=== PATIENT | female | born 1975 | race Caucasian/White ===

== ENCOUNTER 2021-10-13 17:00 | Inpatient (IN) ==
[2021-10-13] MEDS ORDERED: ONDANSETRON INJ 2 MG/ML 2 ML VIAL IV STA (19:22)
[2021-10-13] MEDS ORDERED: SODIUM CHLORIDE 0.9% 500 ML IV STA (19:22)
[2021-10-13] MEDS ORDERED: MoRPHine SULFATE 4 MG/ML 1 ML CARP\\VIAL IV STA ×2 (19:22→21:00)
--- NOTE | 2021-10-13 19:25 | Emergency Department Note ---
Impression & Plan Lumbar radiculopathy, Bulging lumbar disc ADMIT ED Provider Note HPI: The patient is a 46-year-old female who presents emergency department with a chief complaint of left-sided back pain with radicular symptoms down the left leg that has been worsening over the past 2 weeks. Patient states that she has had outpatient x-rays performed, she has been on multiple Medications over the past 2 weeks without any relief of her pain. Patient states that tonight her pain was more intractable than it had been, worsens with movement of her left leg, she states the pain is in the left lower back and radiates down to her left foot. Patient denies any urinary incontinence or retention, denies any recent fevers, denies any motor deficits distally in the lower extremities. On arrival the patient is tearful, she is anxious appearing, states that she is having fairly severe lower back pain. ROS: -Neuro: Left-sided lower back pain with radicular symptoms *10 point review systems was conducted and is otherwise negative unless stated above *Outpatient medications and allergy history reviewed PE: General: Alert, very distressed secondary to pain HEENT: Normocephalic, atraumatic Eyes: Extraocular eye movement is intact, no scleral erythema Pulmonary: Clear to auscultation bilaterally, no wheezing Cardio: Regular rate and rhythm GI: Abdomen is soft, nontender : No suprapubic tenderness MSK: No evidence of trauma or malformation of the extremities, no edema Skin: No evidence of rash Neuro: Alert, no focal deficits, no midline tenderness of the thoracic or lumbar spine to palpation, no step-off deformity, no fluctuance patient ambulates lower extremities spontaneously without issue, motor/sensory function intact Psychiatric: Appearing/tearful Medical Decision Making: Patient presented to the emergency department with some acute back pain that is been worsening over the past 2 weeks. Given that she has had multiple outpatient x-rays performed I did obtain CT imaging of the lumbar spine that shows evidence of paracentral disc protrusion at the level of L3/L4 with some impingement of the lateral nerve roots on the left side also resulting in some severe central canal narrowing. Patient was given morphine here in the ED for pain with some minimal relief, she was given an additional dose of morphine as well as a dose of Solu-Medrol on my reassessment given that she is having some continued pain. She remains otherwise neurologically intact in the distal extremities on my reassessment. Given the severity of the patient's pain in add ition to the intractable nature, I did discuss case with on-call spinal surgery, Dr. Hernandez, who states that he would be able to evaluate the patient tomorrow for surgery given the severity of her pain. Patient states that she prefers admission at this time, I do think this is reasonable given CT imaging findings. Following my discussion with Dr. Hernandez we will obtain MRI imaging of the lumbar spine to assist in planning for possible surgical intervention tomorrow for likely decompression. Patient was in agreement to the above plan, I discussed the case with the on-call hospitalist for [facility], Dr. Van, the patient was admitted in stable condition for further management with MRI pending. Diagnosis: 1. Acute left-sided lower back pain with radicular symptoms 2. Intractable lower back pain 3. Lumbar disc disease with central canal narrowing on CT imaging Disposition: Admission Bryce Cartwright DO Emergency Medicine Past Med/Surg History Medical History Erosive gastropathy GERD without esophagitis Irritable bowel syndrome with diarrhea Tobacco use Surgical History (Updated 10/13/21 @ 21:59 by Mariela Van DO) H/O colonoscopy History of esophagogastroduodenoscopy (EGD) Social History Smoking Status: Current some day smoker Preferred Language: [place] Feels Safe at Home: Yes Allergies Allergies Allergy/AdvReac Type Severity Reaction Status Date / Time No Known Allergies Allergy Verified 10/13/21 19:47 Home Meds Home Medications Medication Instructions Recorded Confirmed oxycodone-acetaminophen 5 mg-325 1 tab PO Q4H PRN 10/13/21 10/13/21 mg tablet Results & Data (ED) Vital Signs Vital Signs - 24 hr 10/13/21 17:11 10/13/21 20:17 10/13/21 21:15 Temperature 36.6 C Temperature Source Temporal Artery Scan Pulse Rate 111 H Pulse Rate [Finger] 76 73 Pulse Rhythm Regular Respiratory Rate 18 20 18 Respiratory Effort / Characteristics Non-Labored Non-Labored Respiratory Depth Normal Normal Respiratory Pattern Regular Blood Pressure 148/91 H Blood Pressure [Right Arm] 106/76 124/80 Blood Pressure Mean 110 Blood Pressure Mean [Right Arm] 86 94 Blood Pressure Position [Right Arm] Lying Pulse Oximetry 98 100 95 Oxygen Delivery Method Room Air Room Air Room Air Sepsis Recent Fever Within 48 Hours No Sepsis New/Unexplained Change in Mental Status N/A Sepsis Action Taken by Nursing No Action Required 10/13/21 21:20 Temperature Temperature Source Pulse Rate Pulse Rate [Finger] Pulse Rhythm Respiratory Rate Respiratory Effort / Characteristics Respiratory Depth Respiratory Pattern Blood Pressure Blood Pressure [Right Arm] Blood Pressure Mean Blood Pressure Mean [Right Arm] Blood Pressure Position [Right Arm] Pulse Oximetry 95 Oxygen Delivery Method Room Air Sepsis Recent Fever Within 48 Hours Sepsis New/Unexplained Change in Mental Status Sepsis Action Taken by Nursing Laboratory Data Result diagrams: 10/13/21 19:40 10/13/21 19:40 Lab Results 10/13/21 10/13/21 10/13/21 Range/Units 19:40 19:40 19:40 WBC 13.14 H (4.8-10.8) K/uL RBC 5.13 (4.2-5.4) M/uL Hgb 14.2 (12.0-16.0) g/dL Hct 43.0 (37-47) % MCV 83.8 (80-100) fL MCH 27.7 (25-34) pg MCHC 33.0 (32-36) g/dL RDW Std Deviation 44.7 (36.4-46.3) fL RDW Coeff of Ramesh 14.4 (11.5-14.5) % Plt Count 356 (130-400) K/uL MPV 9.8 (7.4-10.4) fL Immature Gran % (Auto) 0.5 % Neut % (Auto) 64.7 % Lymph % (Auto) 27.5 % [place] % (Auto) 6.8 % Eos % (Auto) 0.4 % Baso % (Auto) 0.1 % Neut # (Auto) 8.51 H (1.4-6.5) K/uL Lymph # (Auto) 3.62 H (1.2-3.4) K/uL [place] # (Auto) 0.89 H (0.11-0.59) K/uL Eos # (Auto) 0.05 (0-0.5) K/uL Baso # (Auto) 0.01 (0-0.2) K/uL Immature Gran # (Auto) 0.06 H (0.00-0.02) K/uL Sodium 135 L (136-145) mmol/L Potassium 4.0 (3.5-5.1) mmol/L Chloride 101 (98-107) mmol/L Carbon Dioxide 22 (21-32) mmol/L Anion Gap 12 H (3-11) BUN 15 (6-23) mg/dl Creatinine 0.69 (0.6-1.2) mg/dl Est Cr Clr Drug Dosing Not Reportable Est GFR ( Amer) 121.8 ml/min Est GFR (Non-Af Amer) 105.1 ml/min BUN/Creatinine Ratio 21.7 H (10-20) Glucose 94 (70-99(Fasting)) mg/dl Calcium 9.5 (8.5-10.1) mg/dl Total Bilirubin 0.6 (0.2-1.0) mg/dl AST 23 (13-39) U/L ALT 24 (7-52) U/L Alkaline Phosphatase 68 (34-104) U/L Total Protein 7.9 (6.0-8.3) gm/dl Albumin 4.8 (3.4-5.0) gm/dl Globulin 3.1 (2.5-4.0) gm/dl Albumin/Globulin Ratio 1.5 (0.9-2) Lipase 12 (11-82) U/L Urine Color Yellow Urine Appearance Clear (Clear) Urine pH 6.0 (4.5-7.5) Ur Specific [place] 1.010 (1.000-1.030) Urine Protein Negative (Negative) Urine Glucose (UA) Negative (Negative) Urine Ketones Negative (Negative) Urine Blood Negative (Negative) Urine Nitrite Negative (Negative) Urine Bilirubin Negative (Negative) Urine Urobilinogen Negative (Negative) Ur Leukocyte Esterase Negative (Negative) SARS-CoV-2, RNA, NAAT (NEGATIVE) 10/13/21 Range/Units 21:15 WBC (4.8-10.8) K/uL RBC (4.2-5.4) M/uL Hgb (12.0-16.0) g/dL Hct (37-47) % MCV (80-100) fL MCH (25-34) pg MCHC (32-36) g/dL RDW Std Deviation (36.4-46.3) fL RDW Coeff of Ramesh (11.5-14.5) % Plt Count (130-400) K/uL MPV (7.4-10.4) fL Immature Gran % (Auto) % Neut % (Auto) % Lymph % (Auto) % [place] % (Auto) % Eos % (Auto) % Baso % (Auto) % Neut # (Auto) (1.4-6.5) K/uL Lymph # (Auto) (1.2-3.4) K/uL [place] # (Auto) (0.11-0.59) K/uL Eos # (Auto) (0-0.5) K/uL Baso # (Auto) (0-0.2) K/uL Immature Gran # (Auto) (0.00-0.02) K/uL Sodium (136-145) mmol/L Potassium (3.5-5.1) mmol/L Chloride (98-107) mmol/L Carbon Dioxide (21-32) mmol/L Anion Gap (3-11) BUN (6-23) mg/dl Creatinine (0.6-1.2) mg/dl Est Cr Clr Drug Dosing Est GFR ( Amer) ml/min Est GFR (Non-Af Amer) ml/min BUN/Creatinine Ratio (10-20) Glucose (70-99(Fasting)) mg/dl Calcium (8.5-10.1) mg/dl Total Bilirubin (0.2-1.0) mg/dl AST (13-39) U/L ALT (7-52) U/L Alkaline Phosphatase (34-104) U/L Total Protein (6.0-8.3) gm/dl Albumin (3.4-5.0) gm/dl Globulin (2.5-4.0) gm/dl Albumin/Globulin Ratio (0.9-2) Lipase (11-82) U/L Urine Color Urine Appearance (Clear) Urine pH (4.5-7.5) Ur Specific [place] (1.000-1.030) Urine Protein (Negative) Urine Glucose (UA) (Negative) Urine Ketones (Negative) Urine Blood (Negative) Urine Nitrite (Negative) Urine Bilirubin (Negative) Urine Urobilinogen (Negative) Ur Leukocyte Esterase (Negative) SARS-CoV-2, RNA, NAAT NEGATIVE (NEGATIVE) Administered Medications Discontinued Medications Hydromorphone HCl (Hydromorphone Inj 0.5 Mg/0.5 Ml Syr) 0.5 mg IV NOW STA Stop: 10/13/21 22:10 Last Admin: 10/13/21 22:16 Dose: 0.5 mg Documented by: [id number] Sodium Chloride (Nss) 500 mls @ 999 mls/hr IV .Q31M STA Stop: 10/13/21 19:52 Last Infusion: 10/13/21 20:14 Dose: 0 mls/hr Documented by: [id number] Admin: 10/13/21 19:37 Dose: 999 mls/hr Documented by: [id number] Methylprednisolone (Methylprednisolone 125 Mg/2 Ml Vial) 125 mg IV NOW STA Stop: 10/13/21 21:01 Last Admin: 10/13/21 21:08 Dose: 125 mg Documented by: [id number] Morphine Sulfate (Morphine Sulfate 4 Mg/Ml 1 Ml Carp\Vial) 4 mg IV NOW STA Stop: 10/13/21 19:23 Last Admin: 10/13/21 19:37 Dose: 4 mg Documented by: [id number] Morphine Sulfate (Morphine Sulfate 4 Mg/Ml 1 Ml Carp\Vial) 4 mg IV NOW STA Stop: 10/13/21 21:01 Last Admin: 10/13/21 21:08 Dose: 4 mg Documented by: [id number] Ondansetron HCl (Ondansetron Inj 2 Mg/Ml 2 Ml Vial) 4 mg IV NOW STA Stop: 10/13/21 19:23 Last Admin: 10/13/21 19:37 Dose: 4 mg Documented by: [id number] Imaging Data Radiologist's Impression: Lumbar Spine CT 10/13/21 19:[address] DOSE: 257.71 mGy.cm HISTORY: back pain with L sided radicular pain TECHNIQUE: Multiaxial CT images of the lumbar spine were performed and reformatted in the sagittal and coronal plane without the use of contrast. A dose lowering technique was utilized adhering to the principles of ALARA. COMPARISON: None. FINDINGS: Mild levoscoliosis of the lumbar spine. No acute fracture or subluxation. Small Schmorl's node at the superior endplate of L2. There is moderate disc space narrowing at L3-L4. Severe disc space narrowing at L4-5 and L5-S1 with endplate sclerosis and small marginal osteophytes. Mild facet degenerative changes noted within the lumbar spine. Visualized sacrum is intact. [id number] central canal and moderate to severe bilateral neural foraminal narrowing at L4-5 and L5-S1 due to the disc bulges and facet hypertrophy. Best seen on axial image 186 and sagittal image 56 there is an 11 x 10 mm left paracentral disc extrusion at L3-L4 resulting in moderate to severe central canal narrowing most pronounced on the left. This likely compresses the transiting left nerve roots at this level. No significant neural foraminal narrowing. IMPRESSION: 1. An 11 x 10 mm left paracentral disc extrusion at L3-L4 resulting in moderate to severe central canal narrowing most pronounced on the left. This likely compresses the transiting left nerve roots at this level. 2. Mild to moderate central canal and moderate to severe bilateral neural foraminal narrowing at L4-5 and L5-S1 due to the broad-based posterior disc bulges and facet hypertrophy. 3. No fracture or subluxation. ACT 112: Negative or not required by law. Electronically signed by: Artur Merino M.D. 10/13/2021 8:27 PM Discharge Plan Visit Data Chief Complaint: Back Injury/Pain Stated Complaint: LOWER BACK PAIN ED Provider: Bryce Cartwright Discharge Problem: Lumbar radiculopathy, Bulging lumbar disc Forms Stand Alone Forms: [place] Prescriptions Prescriptions: No Action oxycodone-acetaminophen 5-325 mg tablet 1 tab PO Q4H PRN (Reason: Pain) RF: 0 Referrals Referrals: PCP,NO [Physician] -
[2021-10-13 19:52] LABS: Basophils # (auto) 0.01 K/uL (0-0.2); Basophils % (auto) 0.1 %; Eosinophils # (auto) 0.05 K/uL (0-0.5); Eosinophils % (auto) 0.4 %; Hemoglobin 14.2 g/dL (12.0-16.0); Immature Granulocytes # (auto) 0.06 K/uL (0.00-0.02); Immature Granulocytes % (auto) 0.5 %; Lymphocytes # (auto) 3.62 K/uL (1.2-3.4); Lymphocytes % (auto) 27.5 %; Mean Corpuscular Hemoglobin 27.7 pg (25-34); Mean Corpuscular Volume 83.8 fL (80-100); Mean Platelet Volume 9.8 fL (7.4-10.4); Monocytes # (auto) 0.89 K/uL (0.11-0.59); Monocytes % (auto) 6.8 %; Neutrophils # (auto) 8.51 K/uL (1.4-6.5); Neutrophils % (auto) 64.7 %; Platelet Count 356 K/uL (130-400); RDW Coefficient of Variation 14.4 % (11.5-14.5); RDW Standard Deviation 44.7 fL (36.4-46.3); Red Blood Count 5.13 M/uL (4.2-5.4); White Blood Count 13.14 K/uL (4.8-10.8)
[2021-10-13 20:00] LABS: Appearance Urine Clear (Clear); Bilirubin Urine Negative (Negative); Blood Urine Negative (Negative); Color Urine Yellow; Glucose Urine UA Negative (Negative); Ketones Urine Negative (Negative); Leukocyte Esterase Urine Negative (Negative); Nitrite Urine Negative (Negative); Protein Urine Negative (Negative); Urobilinogen Urine Negative (Negative)
[2021-10-13 20:13] LABS: Alanine Aminotransferase 24 U/L (7-52); Albumin Globulin Ratio 1.5 (0.9-2); Albumin Level 4.8 gm/dl (3.4-5.0); Alkaline Phosphatase 68 U/L (34-104); Anion Gap 12 (3-11); Aspartate Aminotransferase 23 U/L (13-39); BUN Creatinine Ratio 21.7 (10-20); Bilirubin,Total 0.6 mg/dl (0.2-1.0); Blood Urea Nitrogen 15 mg/dl (6-23); Calcium 9.5 mg/dl (8.5-10.1); Carbon Dioxide 22 mmol/L (21-32); Chloride 101 mmol/L (98-107); Est GFR (African American) 121.8 ml/min; Est GFR (Non-African American) 105.1 ml/min; Globulin 3.1 gm/dl (2.5-4.0); Glucose 94 mg/dl (70-99(Fasting)); Lipase 12 U/L (11-82); Sodium 135 mmol/L (136-145); Total Protein 7.9 gm/dl (6.0-8.3)
--- NOTE | 2021-10-13 20:29 | CT Scan Report ---
LUMBAR SPINE CT CT DOSE: 257.71 mGy.cm HISTORY: back pain with L sided radicular pain TECHNIQUE: Multiaxial CT images of the lumbar spine were performed and reformatted in the sagittal an d coronal plane without the use of contrast. A dose lowering technique was utilized adhering to the principles of ALARA. COMPARISON: None. FINDINGS: Mild levoscoliosis of the lumbar spine. No acute fracture or subluxation. Small Schmorl's n ode at the superior endplate of L2. There is moderate disc space narrowing at L3-L4. Severe disc spac e narrowing at L4-5 and L5-S1 with endplate sclerosis and small marginal osteophytes. Mild facet dege nerative changes noted within the lumbar spine. Visualized sacrum is intact. [id number] central canal and moderate to severe bilateral neural foraminal narrowing at L4-5 and L5-S1 due to the disc bulges and facet hypertrophy. Best seen on axial image 186 and sagittal image 56 there is an 11 x 10 mm left paracentral disc extrusion at L3-L4 resulting in moderate to severe central canal narrowing m ost pronounced on the left. This likely compresses the transiting left nerve roots at this level. No significant neural foraminal narrowing. IMPRESSION: 1. An 11 x 10 mm left paracentral disc extrusion at L3-L4 resulting in moderate to severe central can al narrowing most pronounced on the left. This likely compresses the transiting left nerve roots at t his level. 2. Mild to moderate central canal and moderate to severe bilateral neural foraminal narrowing at L4-5 and L5-S1 due to the broad-based posterior disc bulges and facet hypertrophy. 3. No fracture or subluxation. ACT 112: Negative or not required by law. Electronically signed by: Artur Merino M.D. 10/13/2021 8:27 PM
[2021-10-13] MEDS ORDERED: methylPREDNISolone 125 MG/2 ML VIAL IV STA (21:00)
--- NOTE | 2021-10-13 22:00 | History & Physical Report ---
Date of Service October 13, 2021 Assessment & Plan (1) Lumbar disc herniation with radiculopathy: Plan: MRI confirms L3-4 disc herniation. Patient with severe pain, numbness in left leg and some subjective weakness in left leg. Having difficulty walking and has failed multiple outpatient treatments. Ortho spine consulted. NPO p MN for possible operation in am. Anti emetics and pain medications as needed. (2) Tobacco use: Plan: Vaping consistently. Declined nicotine patch. (3) DVT prophylaxis: Plan: SCDs Full Code Dispo-pending ortho spine recommendations. Mariela Van DO [facility] Hospitalist History of Present Illness Chief Complaint: back pain Primary Care Provider: Syed Abdi MD 46 yo F smoker (vaper) presents with acute on chronic back pain. She reports a history of lower back pain on occasion and states that she would se two aspirin with resolution. She now reports that two ago she started feeling a sharp radiating pain from the left lower back down the left posterior leg. Pain is severe and causes her difficulty moving around and walking. She reports that next day she was unable to stand. The pain radiated all the way to her left toes. She reports muscle tremors and numbness. She received muscle relaxers and prednisone, but didn't improve over the weekend. She received SI joint injections in the clinic, also without success in controlling his pain. Her severe pain brought her in and she has received IV narcotics and solumedrol IV. Dr Hernandez has opening tomorrow for possible surgery but needs MRI tonight, which was ordered. This reveals a large left sided disc herniation in the L3-4 area with severe left lateral recess and moderate to severe spinal canal stenosis. She reports nausea currently, possibly related to recent IV narcotic use, and am giving her phenergan now. She reports nausea as a response to anesthesia in the past, but otherwise no issue of poor tolerance of anesthesia. She denies a h/o blood clots personally or in her family. She is an active person without any issues with chest pain or shortness of breath with exertion in the last 6 months. Allergies Allergy/AdvReac Type Severity Reaction Status Date / Time No Known Allergies Allergy Verified 10/13/21 19:47 Home Medications Medication Instructions Recorded Confirmed Type oxycodone-acetaminophen 5 mg-325 1 tab PO Q4H PRN 10/13/21 10/13/21 History mg tablet Past Med/Surg History Medical History Erosive gastropathy GERD without esophagitis Irritable bowel syndrome with diarrhea Tobacco use Surgical History H/O colonoscopy History of esophagogastroduodenoscopy (EGD) Family History Other Family history non-contributory Social History Smoking Status: Current every day smoker Cigarettes Per Day: vape; Hx Alcohol Use: Yes Alcohol type: hard liquor Hx Substance Use: No Preferred Language: Tristanian Communication Ability: Effective 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 Physical Exam Physical Exam: CONSTITUTIONAL: WNWD, vitals as above, generally appears in moderate distress with position changes. EYES: normal conjunctivae, no scleral icterus ENT: external ear and nose normal, MMM NECK: trachea midline RESPIRATORY: clear to auscultation bilaterally, no crackles, rales or wheezes, normal respiratory effort CARDIOVASCULAR: regular rate and rhythm, S1 and 2 heard without murmurs, gallops or rubs, no JVD, no peripheral edema CHEST: inspection of chest was normal GASTROINTESTINAL: soft, nontender, ND, no guarding MUSCULOSKELETAL: strength 5/5 throughout, head is normocephalic and atraumatic, SI joint pain to palpation on the left side. No piriformis pain on the left. SKIN: warm and dry, NEUROLOGIC: CN 2-12 grossly intact, no sensory deficit, normal cognition, normal speech, no tremor, 2+ DTRs bilaterally. PSYCHIATRIC: alert cooperative and oriented to person, place and time. Results & Data Results & Data ([facility]) Vital Signs (Past 12 Hours) Vital Signs Temp Pulse Pulse Resp BP BP Pulse Ox 10/13/21 21:20 95 10/13/21 21:15 73 18 124/80 95 10/13/21 20:17 76 20 106/76 100 10/13/21 17:11 36.6 C 111 H 18 148/91 H 98 Laboratory Results Short CBC 10/13/21 Range/Units 19:40 WBC 13.14 H (4.8-10.8) K/uL Hgb 14.2 (12.0-16.0) g/dL Hct 43.0 (37-47) % Plt Count 356 (130-400) K/uL BMP 10/13/21 19:40 Sodium 135 L Potassium 4.0 Chloride 101 Carbon Dioxide 22 BUN 15 Creatinine 0.69 Glucose 94 Calcium 9.5 Liver Function 10/13/21 Range/Units 19:40 Total Bilirubin 0.6 (0.2-1.0) mg/dl AST 23 (13-39) U/L ALT 24 (7-52) U/L Alkaline Phosphatase 68 (34-104) U/L Albumin 4.8 (3.4-5.0) gm/dl Urine 10/13/21 Range/Units 19:40 Urine Color Yellow Urine Appearance Clear (Clear) Urine pH 6.0 (4.5-7.5) Ur Specific [place] 1.010 (1.000-1.030) Urine Protein Negative (Negative) Urine Glucose (UA) Negative (Negative) Diagnostic Findings Lumbar Spine CT 10/13/21 19:[address] DOSE: 257.71 mGy.cm HISTORY: back pain with L sided radicular pain TECHNIQUE: Multiaxial CT images of the lumbar spine were performed and reformatted in the sagittal and coronal plane without the use of contrast. A dose lowering technique was utilized adhering to the principles of ALARA. COMPARISON: None. FINDINGS: Mild levoscoliosis of the lumbar spine. No acute fracture or subluxation. Small Schmorl's node at the superior endplate of L2. There is moderate disc space narrowing at L3-L4. Severe disc space narrowing at L4-5 and L5-S1 with endplate sclerosis and small marginal osteophytes. Mild facet degenerative changes noted within the lumbar spine. Visualized sacrum is intact. [id number] central canal and moderate to severe bilateral neural foraminal narrowing at L4-5 and L5-S1 due to the disc bulges and facet hypertrophy. Best seen on axial image 186 and sagittal image 56 there is an 11 x 10 mm left para central disc extrusion at L3-L4 resulting in moderate to severe central canal narrowing most pronounced on the left. This likely compresses the transiting left nerve roots at this level. No significant neural foraminal narrowing. IMPRESSION: 1. An 11 x 10 mm left paracentral disc extrusion at L3-L4 resulting in moderate to severe central canal narrowing most pronounced on the left. This likely compresses the transiting left nerve roots at this level. 2. Mild to moderate central canal and moderate to severe bilateral neural foraminal narrowing at L4-5 and L5-S1 due to the broad-based posterior disc bulges and facet hypertrophy. 3. No fracture or subluxation. ACT 112: Negative or not required by law. Electronically signed by: Artur Merino M.D. 10/13/2021 8:27 PM Code Status & VTE Plan VTE Prophylaxis Plan VTE Prophylaxis will be ordered: Yes
[2021-10-13] MEDS ORDERED: HYDROmorphone INJ 0.5 MG/0.5 ML SYR IV STA (22:09)
[2021-10-13] MEDS ORDERED: oxyCODONE/ACETAMINOPHEN 5mg/325mg TAB PO PRN (23:03)
[2021-10-13] MEDS ORDERED: POLYETHYLENE (MIRALAX) 17 GM PACK PO PRN (23:03)
[2021-10-13] MEDS ORDERED: ACETAMINOPHEN 325 MG TAB PO PRN (23:03)
[2021-10-13] MEDS ORDERED: ONDANSETRON INJ 2 MG/ML 2 ML VIAL IV PRN (23:03)
[2021-10-13] MEDS: MoRPHine SULFATE 2 MG/ML CARP IV PRN (23:42)
[2021-10-14] MEDS ORDERED: PROMETHAZINE HCL 12.5 MG in SODIUM CHLORIDE 0.9% 50 ML IV STA (01:29)
[2021-10-14] MEDS ORDERED: PROMETHAZINE HCL 12.5 MG in SODIUM CHLORIDE 0.9% 50 ML IV PRN ×3 (01:29→16:59)
[2021-10-14 06:52] LABS: Pregnancy Test, Urine Negative (Negative)
--- NOTE | 2021-10-14 07:53 | Orthopedic Consultation ---
Date of Consultation October 14, 2021 Assessment & Plan (1) Lumbar disc herniation with radiculopathy: Assessment radicular process L3-L4 in the left with radiculopathy. Plan at this time the patient is in significant distress is unable to ambulate or work for the past 2 weeks as failed a course of steroids and would like to consider surgical intervention. She will require lumbar laminotomy excision with herniated free fragment L3-4 on the left. Risk benefits pros cons and alternatives were outlined in detail. This time she is n.p.o. we will try for surgery later today. History of Present Illness Reason for Consultation: Severe left leg pain Attending Physician: Adriana Barrow MD History of Present Illness This is a 46-year-old female who presents to emergency room last evening with complaints of severe left leg pain. She states the symptoms began a little over 2 weeks ago. She denies any specific trauma fall or event. She is seen her family physician twice over the past 2 weeks and has undergone a course of steroids. This provided very temporary relief. She describes the pain as involving the back left buttock and left anterior thigh extending below the knee into the foot. There is numbness and tingling in the foot. She is unable to ambulate secondary to the pain. She has to lie supine with her leg propped up. She has been unable to work for the past week secondary to pain. The right lower extremity is asymptomatic. She denies loss of bowel or bladder control. Allergies Allergy/AdvReac Type Severity Reaction Status Date / Time No Known Allergies Allergy Verified 10/13/21 19:47 Home Medications Medication Instructions Recorded Confirmed Type oxycodone-acetaminophen 5 mg-325 1 tab PO Q4H PRN 10/13/21 10/13/21 History mg tablet Patient History Medical History Erosive gastropathy GERD without esophagitis Irritable bowel syndrome with diarrhea Tobacco use Surgical History H/O colonoscopy History of esophagogastroduodenoscopy (EGD) Family History Other Family history non-contributory Social History Smoking Status: Current every day smoker Cigarettes Per Day: vape; Hx Alcohol Use: Yes Alcohol type: hard liquor Hx Substance Use: No Preferred Language: Martiniquais Communication Ability: Effective Archeologist Required: No Beliefs That Will Affect Care: None Current Living Situation: Spouse Other Information That Helps Us Care for You: No Feels Safe at Home: Yes Safety Concerns: Feels Safe At This Time Assistive Devices: Contacts Physical Exam Physical Exam: On exam she is most comfortable lying supine with her left leg propped up under a pillow. She exhibits plus out of 5 bilateral plantar flexion dorsiflexion bilaterally. There is some breakaway weakness to the left quadriceps compared to 5 or 5 on the right. Sensory is diminished on left compared to the right. She can has significant tension signs on the left. Results & Data ([facility]) Vital Signs (Past 12 Hours) Vital Signs Temp Pulse Resp BP BP Pulse Ox 10/13/21 23:05 36.5 C 66 18 113/68 97 10/13/21 21:20 95 10/13/21 21:15 73 18 124/80 95 10/13/21 20:17 76 20 106/76 100
[2021-10-14] MEDS: MoRPHine SULFATE 2 MG/ML CARP IV PRN ×2 (07:54→12:44)
--- NOTE | 2021-10-14 08:10 | Magnetic Resonance Report ---
MRI OF THE LUMBAR SPINE WITHOUT CONTRAST CLINICAL HISTORY: Intractable back pain, radicular pain down left leg COMPARISON STUDY: Lumbar spine CT October 13, 2021. TECHNIQUE: Utilizing a 1.5 Bettina magnet and dedicated coil, multiplanar, multiecho imaging of the [facility] spine was performed without IV contrast. FINDINGS: For purposes of numbering on this exam, the L5-S1 disc space is assigned to axial image 23 of 25. Ali gnment of the lumbar spine is anatomic. Vertebral body heights are maintained. No suspicious marrow r eplacement is present. The conus terminates at the T12-L1 level. There is no intracanalicular mass or fluid collection. Discogenic changes at the L3-L4 level are noted. There is a Schmorl's node along t he superior endplate of L2 as well as the superior endplate of T12. Paravertebral soft tissues are un remarkable. This exam was slightly compromised given difficulty positioning. A 2.3 cm cystic focus wi thin the right hemipelvis is partially imaged on this exam. L1-2: The central canal and neural foramen are patent. L2-3: The central canal and neural foramen are patent. L3-4: There is mild disc space narrowing. Note is made of a 1.2 x 1.1 x 1 cm left paracentral disc ex trusion which results in marked narrowing of the left lateral recess with displacement of the descend ing left L4 nerve root. There is moderate to severe narrowing of the left aspect of the canal. Mild f acet arthrosis is present. Neural foramen are patent. L4-5: Moderate disc space narrowing is noted. There is facet arthrosis. Central canal is patent. Ther e is mild bilateral neural foraminal stenosis. L5-S1: Facet arthrosis is present. There is mild disc space narrowing. There is moderate bilateral ne ural foraminal stenosis. IMPRESSION: 1. Large left paracentral disc extrusion at L3-L4 which results in severe narrowing of the left later al recess and moderate to severe central canal stenosis. This could be correlated with left L4 radicu lopathy. 2. Otherwise, patent central canal. 3. Moderate multilevel facet arthrosis. Multilevel neural foraminal stenosis, as above. 4. 2.3 cm cystic focus within the right hemipelvis, partially imaged on this exam. This likely a righ t ovarian cyst. Pelvic ultrasound could be obtained for further evaluation. ACT 112: Negative or not required by law. Electronically signed by: Sanjeev Pope M.D. 10/14/2021 8:09 AM
--- NOTE | 2021-10-14 12:33 | Anesthesiology Consultation ---
Date of Service October 14, 2021 Assessment & Plan Chart Review Chart Review: Acceptable Risk for Surgery and Patient NOT seen in Pre Admission Testing Consults Requested none ASA ASA2 Proposed Anesthesia Anesthesia Type: General History Surgery Operation Date: 10/14/21 09:50 Proposed Procedures p Lumbar Laminectomy Left L3-L4(Left) - Evangelist Hernandez DO Height/Weight Height: 5 ft 5 in Weight: 54.601 kg Allergies Allergy/AdvReac Type Severity Reaction Status Date / Time No Known Allergies Allergy Verified 10/13/21 19:47 Medications Home Medications Medication Instructions Recorded Confirmed Last Taken oxycodone-acetaminophen 5 mg-325 1 tab PO Q4H PRN 10/13/21 10/13/21 10/12/21 mg tablet Active Medications Generic Name Dose Route Start Last Admin Trade Name Freq PRN Reason Stop Dose Admin Morphine Sulfate 2 mg 10/13/21 23:03 10/14/21 07:54 Morphine Sulfate 2 Mg/Ml Carp IV 10/27/21 23:02 2 mg Q4H PRN Administration Chest Pain Past Medical History Medical History Erosive gastropathy GERD without esophagitis Irritable bowel syndrome with diarrhea Tobacco use Exercise / Class Metabolic Activity II 4-5 Yardwork/Stairs/Walk up hill Past Family History Family History Other Family history non-contributory Past Surgical History Surgical History H/O colonoscopy History of esophagogastroduodenoscopy (EGD) Past Anesthesia History No Hx of Anesthesia Complications and No Family Hx of Anesthesia Complications History of PONV No Hx of PONV and No Hx of Motion Sickness Social History Smoking Status: Current every day smoker Smoking cigarettes per day: vape Hx Alcohol Use: Yes Alcohol type: hard liquor alcohol intake frequency: holidays/special occasions only Hx Substance Use: No Physical Exam Vital Signs Last Vital Signs Temp 36.7 C 10/14/21 07:27 Pulse 70 10/14/21 07:27 Resp 18 10/14/21 07:27 BP 101/64 10/14/21 07:27 Pulse Ox 93 10/14/21 07:27 Testing Laboratory Results 10/13/21 19:40 10/13/21 19:40 Urine Color Yellow 10/13/21 19:40 Urine Appearance Clear (Clear) 10/13/21 19:40 Urine pH 6.0 (4.5-7.5) 10/13/21 19:40 Ur Specific [place] 1.010 (1.000-1.030) 10/13/21 19:40 Urine Protein Negative (Negative) 10/13/21 19:40 Urine Glucose (UA) Negative (Negative) 10/13/21 19:40 Urine Ketones Negative (Negative) 10/13/21 19:40 Urine Nitrite Negative (Negative) 10/13/21 19:40 Ur Leukocyte Esterase Negative (Negative) 10/13/21 19:40 Urine Test Negative (Negative) 10/14/21 Unknown 10/14/21 Unknown Urine Test Negative Electrocardiogram Date: 10/13/21 Findings: + SB @ (at 60 w/ sinus arrhythmia;ventricular pre excitation,WPW pattern Type B pattern)
[2021-10-14] MEDS ORDERED: MIDAZOLAM HCL 1 MG/ML 2ML VIAL ONE (13:54)
[2021-10-14] MEDS ORDERED: fentaNYL citrate 100 MCG/2 ML VIAL ONE (13:55)
[2021-10-14] MEDS ORDERED: LIDOCAINE 2% 2 ML VIAL/AMP(20MG/ML) INFIL ONE (13:57)
[2021-10-14] MEDS ORDERED: NEOSTIGMINE METHYLSULFATE 1 MG/ML 10ML VIAL ONE (13:57)
[2021-10-14] MEDS ORDERED: ROCURONIUM BROMIDE 10 MG/ML 5 ML VIAL IV ONE (13:57)
[2021-10-14] MEDS ORDERED: GLYCOPYRROLATE 0.2 MG/ML VIAL ONE (13:57)
[2021-10-14] MEDS ORDERED: PROPOFOL IV EMULSION 10 MG/ML 20 ML VIAL IV ONE (13:57)
[2021-10-14] MEDS ORDERED: DEXAMETHASONE SOD INJ 4 MG/ML VIAL ONE (13:57)
[2021-10-14] MEDS ORDERED: ONDANSETRON INJ 2 MG/ML 2 ML VIAL ONE (13:57)
[2021-10-14] MEDS ORDERED: EPINEPHrine INJ 1 MG/ML AMP ONE (14:22)
[2021-10-14] MEDS ORDERED: ceFAZolin 1000MG 1,000 MG/7.5 ML SYR IV ONE (14:22)
[2021-10-14] MEDS ORDERED: SCOPOLAMINE 1 MG TDSY TD ONE ×2 (14:22→14:24)
[2021-10-14] MEDS ORDERED: ceFAZolin 330 MG/ML 1 GM VIAL ONE (14:23)
[2021-10-14] MEDS ORDERED: BUPIVACAINE 0.5 % 5 MG/1 ML MPF 30ML VIAL ONE (14:23)
[2021-10-14] MEDS ORDERED: ATROPINE SULFATE 0.1 MG/ML 10ML SYR IV PRN (14:26)
[2021-10-14] MEDS ORDERED: FLUMAZENIL 0.1 MG/1 ML 10 ML VIAL IV PRN (14:26)
[2021-10-14] MEDS ORDERED: NALOXONE HCL 0.4 MG/1 ML VIAL/CARP IV PRN ×2 (14:26→16:59)
[2021-10-14] MEDS ORDERED: HYDROmorphone INJ 1 MG/ML SYRINGE IV PRN ×2 (14:26→16:59)
[2021-10-14] MEDS ORDERED: LABETALOL HCL IV 5 MG/ML 20ML IV PRN (14:26)
[2021-10-14] MEDS ORDERED: ONDANSETRON INJ 2 MG/ML 2 ML VIAL IV PRN ×2 (14:26→16:59)
[2021-10-14] MEDS ORDERED: ePHEDrine sulfate 50 MG/ML AMP IV PRN (14:26)
[2021-10-14] MEDS ORDERED: FLOSEAL HEMOSTATIC MATRIX 10ML TOP ONE (15:17)
[2021-10-14] MEDS ORDERED: HYDROmorphone INJ 2 MG/ML SYR/VIAL ONE (15:20)
[2021-10-14] MEDS ORDERED: PHENYLEPHRINE 100MCG/ML 5ML SYR ONE (15:29)
--- NOTE | 2021-10-14 15:40 | Operative Report ---
Post Operative Report Pre & Post Diagnosis Operation Date: 10/14/21 09:50 Pre-Op Diagnosis: Lumbar Disc Herniation with Radiculopathy Left L3-L4 Post-Op Diagnosis: Lumbar Disc Herniation with Radiculopathy Left L3-L4 Operation Date: 10/15/21 14:00 <No data on this case meets the specified criteria> I identified the patient and participated in the time-out.: Yes Procedure Operation Date: 10/14/21 09:50 Actual Procedures Lumbar laminotomy L3-L4 and left with excision of herniated free fragments Operation Date: 10/15/21 14:00 <No data on this case meets the specified criteria> Surgeon Evangelist Hernandez, DO Special Effects Artist Ibis Bruce Estimated Blood Loss 10 Findings Consistent with Post-Op Diagnosis Specimens None Indications This is a 46-year-old female who presents to the emergency room late last evening with severe back and left leg pain consistent with radiculopathy. She been unable to ambulate for well over 2 weeks secondary to pain. She is unable to work. MRI demonstrates evidence of large free fragment disc material at L3-4 level concordant with her leg symptoms. Subsequently I recommended urgent lumbar laminotomy and excision of herniated free fragment. Description of Procedure Patient was met with identified informed consent obtained. Patient was then taken to the operative suite underwent ablation placed in a prone position on the Nikhil table atop the Jabier frame. All bony prominences well-padded eyes inspected to ensure no external pressure placed upon the. This point the lumbar spine was prepped and draped in normal sterile fashion. With the assistance of fluoroscopy I identified the L3-L4 disc space. Small midline incision was created and I exposed the interlaminar space at L3-L4 on the left. Self- retaining tractors placed. Then performed a small laminotomy excising just a small portion of the medial aspect of the facet as well as the ligamentum flavum to expose a significant compressed traversing L for nerve root. I was able to mobilize this medially and several loose fragments of disc material identified and removed. The area was explored several times which were all loose fragments were addressed. It was then copiously irrigated and closed with subcutaneous Vicryl and 4 Monocryl for final skin closure. Steri-Strip sterile dressings placed. Patient waken taken PACU stable condition. Please note Ibis Bruce was present throughout the entire procedure involved the patient positioning complex portions of the surgery and final skin closure. I attest to the content of the Intraoperative Record and any orders documented t herein. Any exceptions are noted below.
--- NOTE | 2021-10-14 16:00 | Fluoroscopy Report ---
FL spine 1V any level CLINICAL HISTORY: L3-4 LAMINECTOMY COMPARISON STUDY: None. FLUOROSCOPY TIME: 4 seconds. FINDINGS: Single fluoroscopic spot images of the lower lumbar spine demonstrates surgical instruments posterior to the L3-L4 level for preoperative planning. IMPRESSION: Fluoroscopic assistance provided for L3-L4 laminectomy. ACT 112: Negative or not required by law. Electronically signed by: Artur Merino M.D. 10/14/2021 3:58 PM
[2021-10-14] MEDS: fentaNYL citrate 100 MCG/2 ML VIAL IV PRN ×3 (16:22→16:32)
--- NOTE | 2021-10-14 16:45 | Anesthesiology Progress Note ---
Date of Service October 14, 2021 Anesthesia Post Procedure Vital Signs Vital Signs: Temp Pulse Pulse Pulse Resp BP BP 10/14/21 16:40 36.3 C L 64 12 10/14/21 16:30 56 L 24 10/14/21 16:20 76 16 10/14/21 16:10 81 16 10/14/21 16:00 92 H 16 10/14/21 15:52 36.2 C L 101 H 16 10/14/21 14:12 36.9 C 69 18 109/67 10/14/21 07:27 36.7 C 70 18 101/64 10/13/21 23:05 36.5 C 66 18 113/68 10/13/21 21:20 10/13/21 21:15 73 18 10/13/21 20:17 76 20 10/13/21 17:11 36.6 C 111 H 18 148/91 H BP Pulse Ox 10/14/21 16:40 112/70 93 10/14/21 16:30 111/78 98 10/14/21 16:20 122/80 95 10/14/21 16:10 125/81 100 10/14/21 16:00 119/83 100 10/14/21 15:52 133/85 100 10/14/21 14:12 99 10/14/21 07:27 93 10/13/21 23:05 97 10/13/21 21:20 95 10/13/21 21:15 124/80 95 10/13/21 20:17 106/76 100 10/13/21 17:11 98 Pain Intensity Left Leg: Pain Intensity: 3 Back: Pain Intensity: 3 Transfer of Care Handoff Completed per policy Notes Mental Status: alert / awake / arousable Patient Amnestic to Procedure: Yes Nausea / Vomiting: adequately controlled Pain: adequately controlled Airway Patency, RR, SpO2: stable & adequate BP & HR: stable & adequate Hydration State: stable & adequate Anesthetic Complications: no major complications apparent and Pt Satisfied with anesthetic care
[2021-10-14] MEDS ORDERED: HYDROmorphone INJ 0.5 MG/0.5 ML SYR IV PRN (16:59)
[2021-10-14] MEDS ORDERED: DO NOT ADMINISTER FLU VACCINE PRN (16:59)
[2021-10-14] MEDS ORDERED: ACETAMINOPHEN 1,000 MG/100 ML VIAL IV PRN (16:59)
[2021-10-14] MEDS ORDERED: ACETAMINOPHEN 500 MG TAB PO PRN (16:59)
[2021-10-14] MEDS ORDERED: hydrOXYzine HCl 25 MG TAB PO PRN (16:59)
[2021-10-14] MEDS ORDERED: MAGNESIUM HYDROXIDE SUSP 30 ML UDC PO PRN (16:59)
[2021-10-14] MEDS ORDERED: bisacodyL 10 MG SUPP PR PRN (16:59)
[2021-10-14] MEDS ORDERED: LORazepam 2 MG/1 ML VIAL IV PRN (16:59)
[2021-10-14] MEDS ORDERED: diphenhydrAMINE Capsule 25 MG CAP PO PRN (16:59)
[2021-10-14] MEDS ORDERED: DO NOT ADMINISTER PNEUMOCOCCAL VACCINE PRN (16:59)
[2021-10-14] MEDS ORDERED: LORazepam 0.5 MG TAB PO PRN (16:59)
[2021-10-14] MEDS ORDERED: FAMOTIDINE 20 MG TAB PO PRN (16:59)
[2021-10-14] MEDS ORDERED: METOCLOPRAMIDE HCL INJ 5 MG/ML 2 ML VIAL IV PRN (16:59)
[2021-10-14] MEDS ORDERED: ONDANSETRON 4 MG OD TAB PO PRN (16:59)
[2021-10-14] MEDS ORDERED: ALUMINUM/MAGNESIUM SUSP 30 ML UDC PO PRN (16:59)
[2021-10-14] MEDS ORDERED: SOD PHOSPHATE/SOD BIPHOSPHATE ENEMA 132 ML BTL PR PRN (16:59)
[2021-10-14] MEDS: CHECK SCOPOLAMINE PATCH PLACEMENT SCH (17:21)
[2021-10-14] MEDS: LACTATED RINGER'S 1,000 ML IV SCH (17:21)
--- NOTE | 2021-10-14 17:54 | Hospitalist Progress Note ---
Date of Service October 14, 2021 Assessment & Plan (1) Lumbar disc herniation with radiculopathy: Plan: MRI confirms L3-4 disc herniation. Patient with severe pain, numbness in left leg and some subjective weakness in left leg. Having difficulty walking and has failed multiple outpatient treatments. Ortho spine consulted. NPO p MN for possible operation in am. Anti emetics and pain medications as needed. Status post 3L4 lumbar laminectomy Management will be as per Ortho Anticoagulation as per Ortho Remains medically stable-we will check labs (2) Tobacco use: Plan: Vaping consistently. Declined nicotine patch. (3) DVT prophylaxis: Plan: SCDs Full Code Dispo-pending ortho spine recommendations. t Admission and Anticipated Discharge Date Admission Date: October 13, 2021 Subjective 10/14/2021 The patient was seen and examined in medical floor She is a status post lumbar back surgery Remains painful and drowsy No cough, chest pain or shortness of breath No abdominal pain nausea and or vomiting Review of Systems Review of Systems: All systems reviewed and are unremarkable except as noted below Musculoskeletal: Back pain without radiculopathy Physical Exam Physical Exam: Lying in bed with minimal distress Constitutional: + ill appearing and average body habitus Eyes: PERRL, conjunctivae normal, anicteric sclerae ENMT: external ear and nose normal, oropharynx normal Neck: trachea midline, no thyromegaly Respiratory: no respiratory distress Auscultation: lungs clear to auscultation bilaterally Cardiovascular: Rate/Rhythm: regular rate and regular rhythm; not tachycardic Heart Sounds: normal S1 and normal S2; no murmur Extremities: no edema Gastrointestinal (Abdomen): Inspection/Auscultation: normal bowel sounds; abdomen not distended Percussion/Palpation: abdomen soft; abdomen nontender Musculoskeletal: No acute arthritis in any joint. Has back pain status post surgery Neurologic: Alert, awake and oriented x3 Results & Data Results & Data ([facility]) Vital Signs (Past 12 Hours) Vital Signs Temp Pulse Pulse Resp BP BP Pulse Ox 10/14/21 17:27 94 H 18 103/67 95 10/14/21 16:59 36.6 C 68 12 110/70 98 10/14/21 16:50 75 12 97/72 L 93 10/14/21 16:40 36.3 C L 64 12 112/70 93 10/14/21 16:30 56 L 24 111/78 98 10/14/21 16:20 76 16 122/80 95 10/14/21 16:10 81 16 125/81 100 10/14/21 16:00 92 H 16 119/83 100 10/14/21 15:52 36.2 C L 101 H 16 133/85 100 10/14/21 14:12 36.9 C 69 18 109/67 99 10/14/21 07:27 36.7 C 70 18 101/64 93 Laboratory Results Short CBC 10/13/21 Range/Units 19:40 WBC 13.14 H (4.8-10.8) K/uL Hgb 14.2 (12.0-16.0) g/dL Hct 43.0 (37-47) % Plt Count 356 (130-400) K/uL BMP 10/13/21 19:40 Sodium 135 L Potassium 4.0 Chloride 101 Carbon Dioxide 22 BUN 15 Creatinine 0.69 Glucose 94 Calcium 9.5 Liver Function 10/13/21 Range/Units 19:40 Total Bilirubin 0.6 (0.2-1.0) mg/dl AST 23 (13-39) U/L ALT 24 (7-52) U/L Alkaline Phosphatase 68 (34-104) U/L Albumin 4.8 (3.4-5.0) gm/dl Urine 10/13/21 Range/Units 19:40 Urine Color Yellow Urine Appearance Clear (Clear) Urine pH 6.0 (4.5-7.5) Ur Specific [place] 1.010 (1.000-1.030) Urine Protein Negative (Negative) Urine Glucose (UA) Negative (Negative) Medications Administered Current Inpatient Medications Acetaminophen (Acetaminophen 500 Mg Tab) 1,000 mg PO Q8H PRN PRN Reason: MILD Pain Scale 1,2,3 & Pre PT Stop: 11/13/21 16:58 Al Hydrox/Mg Hydrox/Simethicone (Aluminum/Magnesium Susp 30 Ml Udc) 30 ml PO Q6H PRN PRN Reason: Dyspepsia Stop: 11/13/21 16:58 Atropine Sulfate (Atropine Sulfate 0.1 Mg/Ml 10ml Syr) 0.5 mg IV Q1M PRN PRN Reason: PACU Use-HR<40 &/or Bradycardi Stop: 10/14/21 22:26 Bisacodyl (Bisacodyl 10 Mg Supp) 10 mg LA DAILY PRN PRN Reason: Constipation Stop: 11/13/21 16:58 Diphenhydramine HCl (Diphenhydramine Capsule 25 Mg Cap) 25 mg PO Q6H PRN PRN Reason: Allergic Rhinitis/Insomnia Stop: 11/13/21 16:58 Ephedrine Sulfate (Ephedrine Sulfate 50 Mg/Ml Amp) 5 mg IV Q5M PRN PRN Reason: PACU Use Only-SBP<90 mmHg Stop: 10/14/21 22:26 Famotidine (Famotidine 20 Mg Tab) 20 mg PO Q12H PRN PRN Reason: Dyspepsia Stop: 11/13/21 16:58 Fentanyl Citrate (Fentanyl Citrate 100 Mcg/2 Ml Vial) 25 mcg IV Q5M PRN PRN Reason: PACU Use Only-Pain Stop: 10/14/21 22:26 Last Admin: 10/14/21 16:32 Dose: 25 mcg Documented by: Flumazenil (Flumazenil 0.1 Mg/1 Ml 10 Ml Vial) 0.2 mg IV Q2M PRN PRN Reason: PACU Use Only-Benzo Reversal Stop: 10/14/21 22:26 Hydromorphone HCl (Hydromorphone Inj 1 Mg/Ml Syringe) 0.25 mg IV Q5M PRN PRN Reason: PACU Use Only-Pain Stop: 10/14/21 22:26 Hydromorphone HCl (Hydromorphone Inj 0.5 Mg/0.5 Ml Syr) 0.5 mg IV Q3H PRN PRN Reason: MODERATE Pain (Scale 4,5,6) & Pre PT Stop: 10/28/21 16:58 Last Admin: 10/14/21 17:18 Dose: 0.5 mg Documented by: Hydromorphone HCl (Hydromorphone Inj 1 Mg/Ml Syringe) 1 mg IV Q3H PRN PRN Reason: SEVERE Pain (Scale 7,8,9,10) Stop: 10/28/21 16:58 Hydroxyzine HCl (Hydroxyzine Hcl 25 Mg Tab) 25 mg PO Q8H PRN PRN Reason: Anxiety Stop: 11/13/21 16:58 Promethazine HCl 12.5 mg/ (Sodium Chloride) 50.5 mls @ 204 mls/hr IV ONCE PRN PRN Reason: PACU Use Only-Nausea/Vomiting Stop: 10/14/21 22:27 Acetaminophen (Ofirmev) 1,000 mg in 100 mls @ 400 mls/hr IV Q8H PRN PRN Reason: Pain Rating 1-3 & Pre PT Stop: 10/17/21 16:58 Cefazolin Sodium (Ancef 1000mg) 1,000 mg in 7.5 mls @ 2.5 mls/min IV Q8H JORGE L; Protocol Stop: 10/15/21 05:47 Dexamethasone 6 mg/ Syringe 1.5 mls @ 1 mls/min IV Q8H JORGE L Stop: 10/15/21 09:47 Lactated Ringer's (Lr) 1,000 mls @ 100 mls/hr IV .Q10H JORGE L Stop: 11/13/21 16:58 Last Admin: 10/14/21 17:21 Dose: 100 mls/hr Documented by: Promethazine HCl 12.5 mg/ (Sodium Chloride) 50.5 mls @ 202 mls/hr IV Q6H PRN PRN Reason: Nausea &/or Vomiting Stop: 11/13/21 16:58 Influenza Virus Vaccine Quadrival (Do Not Administer Flu Vaccine) 1 ea N/A PRN PRN PRN Reason: Notification Stop: 11/13/21 16:58 Labetalol HCl (Labetalol Hcl Iv 5 Mg/Ml 20ml) 5 mg IV Q5M PRN PRN Reason: PACU Use-SBP>160 or DBP>100 Stop: 10/14/21 22:27 Lorazepam (Lorazepam 0.5 Mg Tab) 0.5 mg PO Q8H PRN PRN Reason: Sedation/Anxiety Stop: 11/13/21 16:58 Lorazepam (Lorazepam 2 Mg/1 Ml Vial) 0.5 mg IV Q8H PRN PRN Reason: Sedation/Anxiety Stop: 11/13/21 16:58 Magnesium Hydroxide (Magnesium Hydroxide Susp 30 Ml Udc) 30 ml PO Q24H PRN PRN Reason: Constipation Stop: 11/13/21 16:58 Metoclopramide HCl (Metoclopramide Hcl Inj 5 Mg/Ml 2 Ml Vial) 10 mg IV Q6H PRN PRN Reason: Nausea &/or Vomiting Stop: 11/13/21 16:58 Miscellaneous (Check Scopolamine Patch Placement) 1 ea N/A QS JORGE L Stop: 10/17/21 05:59 Last Admin: 10/14/21 17:21 Dose: 1 ea Documented by: Miscellaneous (Remove Transderm-Scop Patch) 1 ea N/A ONE ONE Stop: 10/17/21 06:01 Naloxone HCl (Naloxone Hcl 0.4 Mg/1 Ml Vial/Carp) 0.2 mg IV Q2M PRN PRN Reason: PACU Use Only-Opiate Reversal Stop: 10/14/21 22:27 Naloxone HCl (Naloxone Hcl 0.4 Mg/1 Ml Vial/Carp) 0.1 mg IV Q5M PRN PRN Reason: Oversedation/Resp depression Stop: 11/13/21 16:58 Ondansetron HCl (Ondansetron Inj 2 Mg/Ml 2 Ml Vial) 4 mg IV ONCE PRN PRN Reason: PACU Use Only-Nausea/Vomiting Stop: 10/14/21 22:27 Ondansetron HCl (Ondansetron Inj 2 Mg/Ml 2 Ml Vial) 4 mg IV Q6H PRN PRN Reason: Nausea &/or Vomiting Stop: 11/13/21 16:58 Ondansetron HCl (Ondansetron 4 Mg Od Tab) 4 mg PO Q6H PRN PRN Reason: Nausea Stop: 11/13/21 16:58 Oxycodone HCl (Oxycodone Hcl Ir 5 Mg Tab (Immediate Release)) 5 - 10 mg PO Q4H PRN PRN Reason: Pain & Pre PT Stop: 10/28/21 16:58 Pneumococcal Polyvalent Vaccine (Do Not Administer Pneumococcal Vaccine) 1 ea N/A PRN PRN PRN Reason: Notification Stop: 11/13/21 16:58 Polyethylene Glycol (Polyethylene (Miralax) 17 Gm Pack) 17 gm PO Q6 JORGE L Stop: 11/14/21 05:59 Senna/Docusate Sodium (Docusate Sodium/Senna 50/8.6mg Tab) 2 tab PO HS JORGE L Stop: 11/13/21 20:59 Sodium Biphosphate/Sodium Phosphate (Sod Phosphate/Sod Biphosphate Enema 132 Ml Btl) 132 ml LA ONE PRN PRN Reason: Constipation Stop: 11/13/21 16:58 Tramadol HCl (Tramadol Hcl 50 Mg Tablet) 50 - 100 mg PO Q4H PRN PRN Reason: Moderate-Severe pain & Pre PT Stop: 11/13/21 16:58
[2021-10-14] MEDS: oxyCODONE HCL IR 5 MG TAB (IMMEDIATE RELEASE) PO PRN (19:22)
[2021-10-14] MEDS: DOCUSATE SODIUM/SENNA 50/8.6MG TAB PO SCH ×2 (20:15→21:23)
[2021-10-14] MEDS: traMADol HCL 50 MG TABLET PO PRN (22:16)
[2021-10-14] MEDS: ceFAZolin 1000MG 1,000 MG/7.5 ML SYR IV SCH (22:17)
[2021-10-14] MEDS: dexAMETHasone 6 MG in SYRINGE 0 ML IV SCH (23:49)
[2021-10-15] MEDS: CHECK SCOPOLAMINE PATCH PLACEMENT SCH ×2 (00:04→07:49)
[2021-10-15] MEDS: oxyCODONE HCL IR 5 MG TAB (IMMEDIATE RELEASE) PO PRN ×3 (01:51→11:45)
[2021-10-15] MEDS: LACTATED RINGER'S 1,000 ML IV SCH (01:56)
[2021-10-15] MEDS: traMADol HCL 50 MG TABLET PO PRN (04:20)
[2021-10-15] MEDS: POLYETHYLENE (MIRALAX) 17 GM PACK PO SCH ×2 (05:45→11:46)
[2021-10-15] MEDS: ceFAZolin 1000MG 1,000 MG/7.5 ML SYR IV SCH (05:46)
[2021-10-15] MEDS: dexAMETHasone 6 MG in SYRINGE 0 ML IV SCH (05:47)
[2021-10-15 08:38] LABS: Hematocrit (blood only) 35.2 % (37-47); Hemoglobin 11.4 g/dL (12.0-16.0); Immature Granulocytes # (auto) 0.06 K/uL (0.00-0.02); Immature Granulocytes % (auto) 0.3 %; Lymphocytes # (auto) 0.85 K/uL (1.2-3.4); Lymphocytes % (auto) 4.8 %; Mean Corpuscular Hgb Conc 32.4 g/dL (32-36); Mean Corpuscular Volume 83.2 fL (80-100); Mean Platelet Volume 9.9 fL (7.4-10.4); Monocytes # (auto) 0.56 K/uL (0.11-0.59); Monocytes % (auto) 3.1 %; Neutrophils # (auto) 16.34 K/uL (1.4-6.5); Neutrophils % (auto) 91.8 %; Platelet Count 288 K/uL (130-400); RDW Coefficient of Variation 14.7 % (11.5-14.5); Red Blood Count 4.23 M/uL (4.2-5.4); White Blood Count 17.81 K/uL (4.8-10.8)
[2021-10-15 08:56] LABS: BUN Creatinine Ratio 18.8 (10-20); Calcium 8.8 mg/dl (8.5-10.1); Creatinine Clr Calc Pharmacy 95.7 ml/min; Est GFR (African American) 124.9 ml/min; Est GFR (Non-African American) 107.8 ml/min
--- NOTE | 2021-10-15 09:08 | Orthopedic Progress Note ---
Date of Service October 15, 2021 Assessment & Plan (1) Lumbar radiculopathy: Plan: At this time we discussed possible discharge home. I am concerned that she still has a postsurgical radiculopathy. We will attempt physical therapy today. She is if she is able to tolerate therapy and ambulate with the believe it is reasonable for her to discharge home. Admission and Anticipated Discharge Date Admission Date: October 13, 2021 Subjective Patient notes marked improvement of her left leg pain however has difficulty standing and ambulating with recurrence of symptoms. Physical Exam Physical Exam: On exam she does appear much more comfortable. She is good strength testing lower extremities. No gross tension signs. Results & Data ([facility]) Vital Signs (Past 12 Hours) Vital Signs Temp Pulse Resp BP Pulse Ox 10/15/21 07:40 36.6 C 71 18 100/62 96 10/15/21 03:49 36.7 C 74 14 97/59 L 96 10/14/21 22:58 36.7 C 68 16 102/66 97
--- NOTE | 2021-10-15 10:27 | Electrocardiogram Report ---
Test Reason : Blood Pressure : / mmHG Vent. Rate : 059 BPM Atrial Rate : 059 BPM P-R Int : 106 ms QRS Dur : 104 ms QT Int : 454 ms P-R-T Axes : 049 054 110 degrees QTc Int : 449 ms Sinus bradycardia with sinus arrhythmia Ventricular pre-excitation, WPW pattern type B Abnormal ECG No previous ECGs available Confirmed by Hari Marcelo ([id number]) on 10/15/2021 10:26:47 AM Referred By: Syde Abdi Confirmed By:Hari Marcelo
--- NOTE | 2021-11-03 13:43 | Discharge Summary ---
Date of Service November 03, 2021 Admission HPI Per Admitting Provider 46 yo F smoker (gerson) presents with acute on chronic back pain. She reports a history of lower back pain on occasion and states that she would se two aspirin with resolution. She now reports that two ago she started feeling a sharp radiating pain from the left lower back down the left posterior leg. Pain is severe and causes her difficulty moving around and walking. She reports that next day she was unable to stand. The pain radiated all the way to her left toes. She reports muscle tremors and numbness. She received muscle relaxers and prednisone, but didn't improve over the weekend. She received SI joint injections in the clinic, also without success in controlling his pain. Her severe pain brought her in and she has received IV narcotics and solumedrol IV. Dr Hernandez has opening tomorrow for possible surgery but needs MRI tonight, which was ordered. This reveals a large left sided disc herniation in the L3-4 area with severe left lateral recess and moderate to severe spinal canal stenosis. She reports nausea currently, possibly related to recent IV narcotic use, and am giving her phenergan now. She reports nausea as a response to anesthesia in the past, but otherwise no issue of poor tolerance of anesthesia. She denies a h/o blood clots personally or in her family. She is an active person without any issues with chest pain or shortness of breath with exertion in the last 6 months. Principal Diagnosis Recurrent lumbar disc herniation Discharge Data Allergies Allergy/AdvReac Type Severity Reaction Status Date / Time No Known Allergies Allergy Verified 10/26/21 16:04 Consultations 10/13/21 21:10 Consult Orthopedic Surgery Routine 10/13/21 21:54 Consult Orthopedic Surgery Routine 10/13/21 22:01 ED Decision to Admit Stat Procedures Performed Operation Date: 10/14/21 09:50 Actual Procedures p Lumbar Laminectomy Left L3-L4(Left) - Evangelist Hernandez, Operation Date: 10/15/21 14:00 <No data on this case meets the specified criteria> Ordered Studies 10/13/21 19:22 CT lumbar spine wo con Stat 10/13/21 21:08 MR lumbar spine wo con Stat 10/14/21 13:30 FL spine 1V any level Routine Hospital Course (1) Recurrent herniation of lumbar disc: Patient returns to the emergency room with severe leg pain updated MRI demonstrates recurrent disc herniation L3-L4. Separately she underwent revision decompression Coflex stabilization the following day. She tolerated this well was taken to orthopedic for possibly. Postop day 1 his strength is intact pain markedly improved he is continue to progress with excellent strength and ambulation MORIAH drain decreasing probably subsequent discharge home. Discharge orders instructions found the chart for further review. Total Time Total Time Spent Total Time Spent (In Minutes): 20 minutes Discharge Plan Discharge Items Patient Disposition: Home - Self-Care Reason For Visit: ACUTE ON CHRONIC LOWER BACK PAIN Discharge Diagnosis: Lumbar disc condition with radiculopathy Activity: As commented below Non-emergency contact: Primary Care Provider Call non-emergency contact if: you have any medication questions Follow-up/Referrals: Evangelist Hernandez DO [Surgeon] - 10/20/21 9:40 am (Appointment will be at [address] [place] [address]. Please arrive for appointment 20 mins early to fill out paperwork. Your appointment will be with Ibis Hahn PA-C ) Syed Abdi MD [Primary Care Provider] - (Date & Time 10/20/2021 11:00 AM Provider Syed Abdi MD Department Family Practice [facility] ) Diet: Regular Addtl Attending Provider Instructions: ACTIVITY RECOMMENDATIONS: SELF CARE INSTRUCTIONS AFTER A LAMINECTOMY 1. No prolonged sitting (less than 30 minutes for the first 3 weeks after surgery). 2. No bending, lifting more than 5 pounds, or twisting (roll like a log when turning in bed). 3. You may shower 3 days after surgery if no drainage from wound. Thoroughly dry wound. Do not soak in the tub. 4. Please walk as much as you can for exercise. Gradually increase the distance that you walk as your endurance increases. 5. You may drive in 7-10 days if you are comfortable and no longer requiring pain medications. SPECIAL CARE INSTRUCTIONS: VERY IMPORTANT TO READ AND REVIEW A. Your surgical incision has been closed with a cosmetic suture under the skin that will dissolve in about 6 weeks. In 14 days, you can use a pair of clean scissors and cut the suture that is left outside of the skin at the ends of your incision. B. Complications are uncommon, but please contact us if you have any signs or symptoms of: 1. wound infection (fever higher than 102.5 degrees F, redness, separation of wound, drainage, or increasing pain from the incision) 2. blood clots in legs (pain, swelling, redness and warmth in legs) 3. urinary tract infection (fever higher than 102.5 degrees, burning upon urination or increased frequency of urination) 4. nerve problems (inability to walk on your toes or heels, numbness, loss of bowel or bladder control) 5. any other symptoms that concern you. C. Please call the office at if you have any concerns or questions about your operation or recovery. MANAGING PAIN AFTER SPINAL SURGERY 1. Narcotic medication is intended for short-term use and will be provided for surgical pain. Surgical pain usually lasts for a period of 4-6 weeks. Narcotic medication includes Percocet, Vicodin, Darvocet, Tylenol #3 or Lortab. 2. Longer-term pain is more appropriately treated with non-narcotic medication such as Tylenol ES. 3. Muscle spasm is not appropriately treated with narcotics. Muscle relaxers such as Soma, Flexeril or Skelaxin can be used along with Tylenol ES. 4. Remember that we all live with some "aches and pains". This is not unusual or uncommon after an injury or as we get older. 5. We will provide appropriate medication within the normal guidelines of their prescribed use. We will also be very cautious and aware of potential abuse and extended duration of patients' medication needs. 6. Please allow 2-3 days to process refills. Prescriptions will not be mailed but must be picked up at the office. FOLLOW UP VISIT: Keep your scheduled follow-up appointment. Any questions, please call the office at . Pending Studies at Discharge: No Stand-Alone Forms: My [employer], Smoking Cessation Medications and DC Order Prescriptions: New tramadol 50 mg tablet 50 mg PO Q6H PRN (Reason: pain, moderate) Qty: 30 RF: 0 Continued oxycodone-acetaminophen 5-325 mg tablet 1 tab PO Q4H PRN (Reason: Pain) RF: 0 No Action oxycodone 5 mg tablet 5 mg PO Q6H PRN (Reason: pain, severe) Qty: 30 RF: 0 Tylenol Cold and Flu Severe [id number] mg Tablet 2 tab PO Q6H PRN (Reason: Pain) RF: 0 lorazepam [Ativan] 0.5 mg tablet 0.5 mg PO TID PRN (Reason: anxiety) Qty: 14 RF: 0 Discharge Orders: Discharge Order (Routine); Ordered 10/15/21 Ordered By: Evangelist Hernandez Admission Data Admit Date/Time: 10/13/21 21:54 Attending Provider: Adriana Barrow Admit Provider: Mariela Van Primary Care Provider: Syed Abdi Other Providers: Evangelist Hernandez ; Mariela Van Other Interventions: Discharge Summary Assessment (RN) Last Done: 10/15/21 13:13
== END 2021-10-15 14:58 | disposition home or self-care (01) | DRG 517 ==
LOC: ED 17:00 → MERGE 21:54 → 3W 21:54

== ENCOUNTER 2021-10-19 17:09 | Inpatient (IN) ==
[2021-10-19] MEDS ORDERED: MoRPHine SULFATE 4 MG/ML 1 ML CARP\\VIAL IV STA (17:57)
[2021-10-19] MEDS ORDERED: ONDANSETRON INJ 2 MG/ML 2 ML VIAL IV STA (17:57)
[2021-10-19 18:37] LABS: Basophils # (auto) 0.01 K/uL (0-0.2); Basophils % (auto) 0.1 %; Eosinophils # (auto) 0.14 K/uL (0-0.5); Hematocrit (blood only) 38.9 % (37-47); Hemoglobin 12.7 g/dL (12.0-16.0); Immature Granulocytes # (auto) 0.04 K/uL (0.00-0.02); Immature Granulocytes % (auto) 0.3 %; Lymphocytes # (auto) 2.53 K/uL (1.2-3.4); Mean Corpuscular Hemoglobin 27.9 pg (25-34); Mean Corpuscular Hgb Conc 32.6 g/dL (32-36); Mean Corpuscular Volume 85.3 fL (80-100); Mean Platelet Volume 9.9 fL (7.4-10.4); Monocytes # (auto) 0.95 K/uL (0.11-0.59); Monocytes % (auto) 6.8 %; Neutrophils # (auto) 10.37 K/uL (1.4-6.5); Neutrophils % (auto) 73.8 %; Platelet Count 335 K/uL (130-400); RDW Coefficient of Variation 14.6 % (11.5-14.5); RDW Standard Deviation 45.2 fL (36.4-46.3); Red Blood Count 4.56 M/uL (4.2-5.4); White Blood Count 14.04 K/uL (4.8-10.8)
--- NOTE | 2021-10-19 18:38 | Emergency Department Note ---
History of Present Illness General Chief complaint: Leg Injury/Pain Stated complaint: SHARP PAIN/NUMBNESS IN L LEG, DR REF Source: patient Mode of arrival: ambulatory Limitations: no limitations History of Present Illness Maximum Pain Intensity: 10 This patient is a 46-year-old female who presents to the emergency department for evaluation of severe back and left leg pain. Patient reports a history of back problems and had surgery performed last week by Dr. Hernandez. She states that she has been having severe pain since the surgery despite taking her oxycodone. She called Dr. Hernandez's office today and she was told to come in and be admitted as she may need another surgery. She denies numbness or weakness. She rates her discomfort a 10/10. Home Medications Medication Instructions Recorded Confirmed Type oxycodone-acetaminophen 5 mg-325 1 tab PO Q4H PRN 10/13/21 10/13/21 History mg tablet oxycodone 5 mg tablet 5 mg PO Q6H PRN #20 tab 10/14/21 Rx tramadol 50 mg tablet 50 mg PO Q6H PRN #30 tab 10/14/21 Rx Allergies Allergy/AdvReac Type Severity Reaction Status Date / Time No Known Allergies Allergy Verified 10/15/21 07:17 Past Med/Surg History Medical History Erosive gastropathy GERD without esophagitis Irritable bowel syndrome with diarrhea Tobacco use Surgical History H/O colonoscopy History of esophagogastroduodenoscopy (EGD) Family History (System 10/15/21 @ 07:17 by Delicia Serrano) Other Family history non-contributory Social History Smoking Status: Current every day smoker Cigarettes Per Day: vape; Hx Alcohol Use: Yes Alcohol type: hard liquor Hx Substance Use: No Preferred Language: Turkish Communication Ability: Effective Mail Caller Required: No Beliefs That Will Affect Care: None Current Living Situation: Spouse Feels Safe at Home: Yes Assistive Devices: Contacts Review of Systems A total of 10 systems reviewed and were otherwise negative Physical Exam Vital Signs Vital Signs - 24 hr 10/19/21 17:12 Temperature 36.8 C Temperature Source Temporal Artery Scan Pulse Rate 88 Respiratory Rate 18 Respiratory Effort / Characteristics Non-Labored Respiratory Depth Normal Blood Pressure 141/86 H Blood Pressure Mean 104 Pulse Oximetry 98 Oxygen Delivery Method Room Air Sepsis Recent Fever Within 48 Hours No Sepsis New/Unexplained Change in Mental Status No Sepsis Action Taken by Nursing No Action Required VITALS: Vitals are noted on the nurse's note and reviewed by myself. GENERAL: This is a 46-year-old female, in no acute distress, well-developed well-nourished. SKIN: The skin was without rashes. EYES: Pupils equal round and reactive to light and accommodation. MOUTH: Mucous membranes moist. Tonsils are not enlarged. Pharynx without erythema or exudate. NECK: Supple without nuchal rigidity. No lymphadenopathy. HEART: Regular rate and rhythm without murmurs gallops or rubs. LUNGS: Clear to auscultation bilaterally without wheezes, rales or rhonchi. ABDOMEN: Positive bowel sounds x 4. Soft, nontender to palpation. MUSCULOSKELETAL: Well-healing surgical incision noted in the lumbar region of the back. No evidence of infection. Significant tenderness to palpation of the lumbar spine. NEURO: Patient was alert and oriented to person place and time. Distal sensation intact. Patellar reflexes 2+ bilaterally. Course Administered Medications Discontinued Medications Morphine Sulfate (Morphine Sulfate 4 Mg/Ml 1 Ml Carp\Vial) 4 mg IV NOW STA Stop: 10/19/21 17:58 Last Admin: 10/19/21 18:13 Dose: 4 mg Documented by: [id number] Ondansetron HCl (Ondansetron Inj 2 Mg/Ml 2 Ml Vial) 4 mg IV NOW STA Stop: 10/19/21 17:58 Last Admin: 10/19/21 18:13 Dose: 4 mg Documented by: [id number] Medical Decision Making Differential Diagnosis Differential diagnosis includes cauda equina syndrome, cord compression, disc herniation, muscle spasm, lumbar strain, epidural abscess, malignancy, transverse myelitis, urinary tract infection, colitis, diverticulitis, kidney stone, among others. Home Medications Current Medication List: was personally reviewed by me Laboratory Data Attestation: I reviewed the patient's lab results. Result diagrams: 10/19/21 18:11 10/19/21 18:11 Lab Results 10/19/21 10/19/21 10/19/21 Range/Units 18:11 18:11 18:11 WBC 14.04 H (4.8-10.8) K/uL RBC 4.56 (4.2-5.4) M/uL Hgb 12.7 (12.0-16.0) g/dL Hct 38.9 (37-47) % MCV 85.3 (80-100) fL MCH 27.9 (25-34) pg MCHC 32.6 (32-36) g/dL RDW Std Deviation 45.2 (36.4-46.3) fL RDW Coeff of Ramesh 14.6 H (11.5-14.5) % Plt Count 335 (130-400) K/uL MPV 9.9 (7.4-10.4) fL Immature Gran % (Auto) 0.3 % Neut % (Auto) 73.8 % Lymph % (Auto) 18.0 % [place] % (Auto) 6.8 % Eos % (Auto) 1.0 % Baso % (Auto) 0.1 % Neut # (Auto) 10.37 H (1.4-6.5) K/uL Lymph # (Auto) 2.53 (1.2-3.4) K/uL [place] # (Auto) 0.95 H (0.11-0.59) K/uL Eos # (Auto) 0.14 (0-0.5) K/uL Baso # (Auto) 0.01 (0-0.2) K/uL Immature Gran # (Auto) 0.04 H (0.00-0.02) K/uL Sodium 137 (136-145) mmol/L Potassium 3.8 (3.5-5.1) mmol/L Chloride 100 (98-107) mmol/L Carbon Dioxide 29 (21-32) mmol/L Anion Gap 8 (3-11) BUN 11 (6-23) mg/dl Creatinine 0.57 L (0.6-1.2) mg/dl Est Cr Clr Drug Dosing Not Reportable Est GFR ( Amer) 129.8 ml/min Est GFR (Non-Af Amer) 112.0 ml/min BUN/Creatinine Ratio 19.3 (10-20) Glucose 96 (70-99(Fasting)) mg/dl Calcium 9.4 (8.5-10.1) mg/dl Total Bilirubin 0.3 (0.2-1.0) mg/dl AST 18 (13-39) U/L ALT 24 (7-52) U/L Alkaline Phosphatase 75 (34-104) U/L Total Protein 7.5 (6.0-8.3) gm/dl Albumin 4.3 (3.4-5.0) gm/dl Globulin 3.2 (2.5-4.0) gm/dl Albumin/Globulin Ratio 1.3 (0.9-2) SARS-CoV-2, RNA, NAAT NEGATIVE (NEGATIVE) MDM Narrative This patient is a 46-year-old female who presents to emergency department for evaluation of severe back pain status post lumbar surgery last week. I did speak with Guicho Modi PA-C from [facility] who will admit the patient to the hospital. He did recommend repeat MRI, this will need to be performed tomorrow as the MRI machines are currently not working. Patient given IV morphine for pain. Impression & Plan Lumbar radiculopathy Discharge Plan Visit Data Chief Complaint: Leg Injury/Pain Stated Complaint: SHARP PAIN/NUMBNESS IN L LEG, DR REF ED Provider: Марина Baltazar ED Midlevel Provider: Marialuisa Coleman Discharge Problem: Lumbar radiculopathy Forms Stand Alone Forms: My [facility] Prescriptions Prescriptions: No Action oxycodone-acetaminophen 5-325 mg tablet 1 tab PO Q4H PRN (Reason: Pain) RF: 0 tramadol 50 mg tablet 50 mg PO Q6H PRN (Reason: pain, moderate) Qty: 30 RF: 0 oxycodone 5 mg tablet 5 mg PO Q6H PRN (Reason: pain, severe) Qty: 20 RF: 0 Referrals Referrals: Syed Abdi MD [Primary Care Provider] -
[2021-10-19 18:58] LABS: Alanine Aminotransferase 24 U/L (7-52); Albumin Globulin Ratio 1.3 (0.9-2); Albumin Level 4.3 gm/dl (3.4-5.0); Alkaline Phosphatase 75 U/L (34-104); Anion Gap 8 (3-11); Aspartate Aminotransferase 18 U/L (13-39); BUN Creatinine Ratio 19.3 (10-20); Bilirubin,Total 0.3 mg/dl (0.2-1.0); Blood Urea Nitrogen 11 mg/dl (6-23); Calcium 9.4 mg/dl (8.5-10.1); Carbon Dioxide 29 mmol/L (21-32); Chloride 100 mmol/L (98-107); Est GFR (African American) 129.8 ml/min; Globulin 3.2 gm/dl (2.5-4.0); Glucose 96 mg/dl (70-99(Fasting)); Potassium 3.8 mmol/L (3.5-5.1); Sodium 137 mmol/L (136-145); Total Protein 7.5 gm/dl (6.0-8.3)
[2021-10-19] MEDS ORDERED: METOCLOPRAMIDE HCL INJ 5 MG/ML 2 ML VIAL IV PRN (20:53)
[2021-10-19] MEDS ORDERED: LORazepam 2 MG/1 ML VIAL IV PRN (20:53)
[2021-10-19] MEDS ORDERED: NALOXONE HCL 0.4 MG/1 ML VIAL/CARP IV PRN (20:53)
[2021-10-19] MEDS ORDERED: HYDROmorphone INJ 0.5 MG/0.5 ML SYR IV PRN (20:53)
[2021-10-19] MEDS ORDERED: MAGNESIUM HYDROXIDE SUSP 30 ML UDC PO PRN (20:53)
[2021-10-19] MEDS ORDERED: ACETAMINOPHEN 1,000 MG/100 ML VIAL IV PRN (20:53)
[2021-10-19] MEDS ORDERED: PROMETHAZINE HCL 12.5 MG in SODIUM CHLORIDE 0.9% 50 ML IV PRN (20:53)
[2021-10-19] MEDS ORDERED: ONDANSETRON 4 MG OD TAB PO PRN (20:53)
[2021-10-19] MEDS ORDERED: ONDANSETRON INJ 2 MG/ML 2 ML VIAL IV PRN (20:53)
[2021-10-19] MEDS ORDERED: ACETAMINOPHEN 500 MG TAB PO PRN (20:53)
[2021-10-19] MEDS ORDERED: traMADol HCL 50 MG TABLET PO PRN (20:53)
[2021-10-19] MEDS ORDERED: HYDROmorphone INJ 1 MG/ML SYRINGE IV PRN (20:53)
[2021-10-19] MEDS ORDERED: LORazepam 0.5 MG TAB PO PRN (20:53)
[2021-10-19 21:18] LABS: Pregnancy Test, Serum Negative (Negative)
[2021-10-19] MEDS: LACTATED RINGER'S 1,000 ML IV SCH (21:25)
[2021-10-19] MEDS: oxyCODONE HCL IR 5 MG TAB (IMMEDIATE RELEASE) PO PRN (21:25)
[2021-10-19] MEDS: Patient's HEIGHT &/or WEIGHT Needed SCH (23:34)
[2021-10-20 00:40] LABS: Appearance Urine Clear (Clear); Bilirubin Urine Negative (Negative); Blood Urine Negative (Negative); Color Urine Yellow; Glucose Urine UA Negative (Negative); Ketones Urine Negative (Negative); Leukocyte Esterase Urine Negative (Negative); Nitrite Urine Negative (Negative); Protein Urine Negative (Negative); Specific Gravity Urine 1.022 (1.000-1.030); Urobilinogen Urine Negative (Negative); pH Urine 6.5 (4.5-7.5)
[2021-10-20] MEDS ORDERED: ceFAZolin 2000MG 2,000 MG/15 ML SYR IV SCH (06:00)
--- NOTE | 2021-10-20 09:47 | History & Physical Report ---
Date of Service October 20, 2021 Assessment & Plan (1) Recurrent herniation of lumbar disc: Plan: Assessment recurrent lumbar disc herniation. Plan at this time concern patient has recurrent lumbar disc and I am requesting an emergent MRI of the lumbar spine to evaluate the spine and consider immediate revision decompression. Admission and Anticipated Discharge Date Admission Date: October 19, 2021 History of Present Illness Chief Complaint: Severe left leg pain Primary Care Provider: Syed Abdi MD This is a 46-year-old female well-known to me that status post lumbar laminotomy L3-L4 on the left last week. Initially postoperatively she had some resolution of radiculopathy but over the course of the past few days which has returned. She describes her pain as a 10 out of 10. Left buttock anterior thigh below the knee to the tibia.. She has weak breakaway weakness with ambulation. The right lower extremities asymptomatic. Allergies Allergy/AdvReac Type Severity Reaction Status Date / Time No Known Allergies Allergy Verified 10/15/21 07:17 Home Medications Medication Instructions Recorded Confirmed Type oxycodone-acetaminophen 5 mg-325 1 tab PO Q4H PRN 10/13/21 10/13/21 History mg tablet oxycodone 5 mg tablet 5 mg PO Q6H PRN #20 tab 10/14/21 Rx tramadol 50 mg tablet 50 mg PO Q6H PRN #30 tab 10/14/21 Rx Past Med/Surg History Medical History Erosive gastropathy GERD without esophagitis Irritable bowel syndrome with diarrhea Tobacco use Surgical History H/O colonoscopy History of esophagogastroduodenoscopy (EGD) Family History (System 10/15/21 @ 07:17 by Delicia Serrano) Other Family history non-contributory Social History Smoking Status: Current every day smoker Cigarettes Per Day: vape; Second Hand Exposure: No; Do You Dip or Chew Tobacco: No; Tobacco Cessation Education Requested by Patient: No Hx Alcohol Use: Yes Alcohol type: hard liquor Hx Substance Use: No Preferred Language: Japanese Communication Ability: Effective Risk Investigator Required: No Beliefs That Will Affect Care: None Current Living Situation: Spouse Other Information That Helps Us Care for You: No Feels Safe at Home: Yes Safety Concerns: Feels Safe At This Time Assistive Devices: Walker Physical Exam Physical Exam: Patient is in obvious distress. She continues to demonstrate tension signs straight leg raising on the left. She is breakaway weakness to the strenuous testing left quadricep and dorsiflexion 5/5 on the right. He is hyperesthetic to touch to left lower extremity compared to the right. Results & Data Results & Data ([facility]) Vital Signs (Past 12 Hours) Vital Signs Temp Pulse Resp BP Pulse Ox 10/20/21 07:33 36.6 C 65 16 106/71 93
--- NOTE | 2021-10-20 10:19 | History & Physical Bridge Note ---
Date of Service October 20, 2021 History & Physical Bridge Note I have examined the patient, reviewed the History & Physical and in the interval since the performance of the History & Physical I have noted the following changes of clinical significance: Patient has a massive recurrent disc condition L3-L4 on the left consistent with her clinical presentation. I am recommending revision decompression and discectomy L3-L4 with possible Coflex versus fusion
[2021-10-20] MEDS: oxyCODONE HCL IR 5 MG TAB (IMMEDIATE RELEASE) PO PRN ×3 (10:51→23:42)
[2021-10-20] MEDS: LACTATED RINGER'S 1,000 ML IV SCH (10:51)
--- NOTE | 2021-10-20 11:36 | Orthopedic Progress Note ---
Date of Service October 20, 2021 Assessment & Plan (1) Recurrent herniation of lumbar disc: Plan: Dr. Hernandez has also reviewed updated MRI from this morning as well as clinical history. It is recommended that she undergo revision decompression of L3-4 due to recurrent disc herniation which is causing left lower extremity radiculopathy. She has uncontrolled pain and weakness with ambulation affecting the left lower extremity. More conservative options would not provide any long- term relief given her recurrent disc herniation nor would they improve her weakness in her left lower extremity with ambulation. It Is recommended that she proceed with above-mentioned surgical planning in a rather bruce manner. Admission and Anticipated Discharge Date Admission Date: October 19, 2021 Subjective I have reevaluated the patient this morning. She has undergone updated lumbar MRI. MRI shows recurrent disc herniation at L3-4 on the left. This is c onsistent with her symptoms. She has undergone prior laminectomy at L3-4 on the left last week by Dr. Hernandez. She has severe left lumbar radiculopathy with standing and walking. This causes her left leg to give out with ambulation. She presented to the ER yesterday due to uncontrolled pain and difficulty with ambulation affecting left lower extremity Review of Systems Review of Systems: All systems reviewed & are unremarkable except as noted in HPI & below Physical Exam 2 Physical Exam: When sitting in bed she sits with her left leg flexed to her chest. When standing and ambulating in her left knee lester and gives out. She is in severe pain with weightbearing left lower extremity. Breakaway weakness left quadricep. Lumbar incision is benign. No drainage. No ecchymosis. No purulence Results & Data ([facility]) Vital Signs (Past 12 Hours) Vital Signs Temp Pulse Resp BP Pulse Ox 10/20/21 07:33 36.6 C 65 16 106/71 93
--- NOTE | 2021-10-20 11:45 | Magnetic Resonance Report ---
LUMBAR SPINE MRI HISTORY: Back and left leg pain. severe leg pain TECHNIQUE: Multiplanar multisequence MRI of the lumbar spine was performed without the use of contras t. COMPARISON: Lumbar spine MRI 10/13/2021. FINDINGS: For the purpose of the report the L5-S1 disc space will be located on axial image image 9 o f series 9. No fracture or subluxation within the lumbar spine. Mild disc space narrowing at L3-L4. Moderate disc space at L4-L5 and L5-S1 with endplate degenerative changes. The conus terminates at the T12 level. L1-L2: No significant central canal or neural foraminal narrowing. L2-L3: No significant central canal or neural foraminal narrowing. L3-L4: Interval left-sided hemilaminectomy with a small amount of fluid along the hemilaminectomy tra ct. There is mild soft tissue edema posterior to the L3-L4 level and diffuse subcutaneous trace edema within the lumbar spine. Although nonspecific this favors postoperative change. There is again noted 11 x 6 mm left paracentral disc extrusion which has slightly decreased in size compared to the prior study. However, this continues to display/compresses the transiting left L4 nerve root and results i n moderate left-sided central canal narrowing. There may be a tiny component of the disc extrusion de monstrating superior subligamentous migration best seen on sagittal image 9. This is new compared the prior study. The neural foramen appear patent. L4-L5: Small broad-based posterior disc bulge with ligamentum and facet hypertrophy resulting in mild central canal and mild bilateral neural foraminal narrowing. This remains unchanged. L5-S1: Small broad-based posterior disc bulge without significant central canal narrowing. There is m oderate bilateral neural foraminal narrowing, unchanged. IMPRESSION: 1. Interval left-sided hemilaminectomy at L3-L4 with a small amount of fluid at the hemilaminectomy t ract and within the posterior soft tissues. This favors expected postoperative change. 2. There is again noted 11 x 6 mm left paracentral disc extrusion at L3-L4 which has slightly decreas ed in size. This appears to abut and displace the transiting left L4 nerve roots and results in moder ate left-sided central canal narrowing. This is only slightly improved in the interval. 3. There is suggestion of a tiny component of the disc extrusion demonstrating superior subligamentou s migration which is new from the prior study. However, this does not result in significant central c anal or neural foraminal narrowing. 4. Additional degenerative changes as described above. ACT 112: Negative or not required by law. Electronically signed by: Artur Merino M.D. 10/20/2021 11:44 AM
[2021-10-20] MEDS ORDERED: SCOPOLAMINE 1 MG TDSY TD ONE ×2 (13:06→13:07)
[2021-10-20] MEDS ORDERED: MIDAZOLAM HCL 1 MG/ML 2ML VIAL ONE (13:08)
[2021-10-20] MEDS ORDERED: fentaNYL citrate 100 MCG/2 ML VIAL ONE (13:08)
[2021-10-20] MEDS ORDERED: ceFAZolin 330 MG/ML 1 GM VIAL ONE (13:40)
[2021-10-20] MEDS ORDERED: BUPIVACAINE/EPINEPHRINE 0.25% 1:200,000 30 ML VIAL ONE (13:40)
[2021-10-20] MEDS ORDERED: PROMETHAZINE HCL 12.5 MG in SODIUM CHLORIDE 0.9% 50 ML IV PRN ×2 (13:44→16:29)
[2021-10-20] MEDS ORDERED: ONDANSETRON INJ 2 MG/ML 2 ML VIAL IV PRN ×2 (13:44→16:29)
[2021-10-20] MEDS ORDERED: ePHEDrine sulfate 50 MG/ML AMP IV PRN (13:44)
[2021-10-20] MEDS ORDERED: ATROPINE SULFATE 0.1 MG/ML 10ML SYR IV PRN (13:44)
[2021-10-20] MEDS ORDERED: DEXAMETHASONE SOD INJ 4 MG/ML VIAL ONE (14:28)
[2021-10-20] MEDS ORDERED: NEOSTIGMINE METHYLSULFATE 1 MG/ML 10ML VIAL ONE (14:28)
[2021-10-20] MEDS ORDERED: PROPOFOL IV EMULSION 10 MG/ML 20 ML VIAL IV ONE (14:28)
[2021-10-20] MEDS ORDERED: GLYCOPYRROLATE 0.2 MG/ML VIAL ONE (14:28)
[2021-10-20] MEDS ORDERED: ONDANSETRON INJ 2 MG/ML 2 ML VIAL ONE (14:28)
[2021-10-20] MEDS ORDERED: LIDOCAINE 2% 2 ML VIAL/AMP(20MG/ML) INFIL ONE (14:28)
[2021-10-20] MEDS ORDERED: ePHEDrine sulfate 50 MG/ML AMP ONE (14:28)
[2021-10-20] MEDS ORDERED: PHENYLEPHRINE HCL 10 MG/ML VIAL ONE (14:28)
[2021-10-20] MEDS ORDERED: FLOSEAL HEMOSTATIC MATRIX 10ML TOP ONE (14:58)
--- NOTE | 2021-10-20 14:58 | Operative Report ---
Post Operative Report Pre & Post Diagnosis Operation Date: 10/20/21 09:20 Pre-Op Diagnosis: Recurrent herniation of lumbar disc Post-Op Diagnosis: Recurrent herniation of lumbar disc I identified the patient and participated in the time-out.: Yes Procedure Operation Date: 10/20/21 09:20 Actual Procedures 1 revision decompression discectomy L3-L4. #2 placement of 12 mm Coflex at L3- L4. Surgeon Evangelist Hernandez, Plywood Layup Line Core Feeder Ibis Bruce Estimated Blood Loss 10 Findings Consistent with Post-Op Diagnosis Specimens None Indications This is a 46-year-old female who presents status post lumbar laminectomy L3-L4 last week. She had return of severe radiculopathy with a 10 out of 10 leg pain and inability to ambulate. Any weightbearing created severe radiculopathy and pain with breakaway weakness. In light of her recurrent disc herniation on her MRI this morning we proceeded with revision decompression discectomy. Description of Procedure Patient was met with identified informed consent obtained. Patient was then taken to the operative suite underwent ablation placed in a prone position the [place] table top Jabier frame. All bony prominences well-padded eyes inspected to ensure no external pressure placed upon the. This point lumbar spine was prepped and draped normal sterile fashion. Utilizing the previous incision site sharp dissection formed down to and exposing the interlaminar space at L3-L4 bilaterally. Several 10 retractors placed. Then we performed a revision decompression at L3-L4. This time I did extend the decompression to include the central part of the laminotomy as well extending it in the cephalad and lateral manner creating a larger medial facetectomy. This allowed greater exploration of the canal however does create risk of instability and further displaced collapse. Identified several loose fragments of disc material along the left shoulder of the root and medially. They were removed entirely. There was explored several times which were always loose fragments were addressed then copiously irrigated. I then placed a 12 mm Coflex posterior stabilizing implant in the interlaminar space and crimped it into position. This entirely prevent further disc base collapse and instability. 10 round MORIAH drain was then inserted and incision was closed with 1 Vicryl fascia 2-0 Vicryl subcutaneously and 4 Monocryl for final skin closure. Steri-Strips dressings placed. Patient waken taken PACU stable condition. Please note Ibis Bruce was present out the entire procedure and all the patient positioning complex portions of the surgery and final skin closure. I attest to the content of the Intraoperative Record and any orders documented therein. Any exceptions are noted below.
[2021-10-20] MEDS: fentaNYL citrate 100 MCG/2 ML VIAL IV PRN ×4 (15:13→15:30)
--- NOTE | 2021-10-20 15:18 | Fluoroscopy Report ---
FL spine 1V any level CLINICAL HISTORY: L3-4 REVISION COMPARISON STUDY: Lumbar spine 10/14/2021. FLUOROSCOPY TIME: 10 seconds. FINDINGS: 2 fluoroscopic spot images of the lumbar spine demonstrate a Coflex device at the L3-L4 lev el IMPRESSION: Fluoroscopic assistance provided for L3-L4 Coflex device placement. ACT 112: Negative or not required by law. Electronically signed by: Artur Merino M.D. 10/20/2021 3:17 PM
[2021-10-20] MEDS: HYDROmorphone INJ 2 MG/ML SYR/VIAL IV PRN ×2 (15:26→15:49)
--- NOTE | 2021-10-20 16:09 | Anesthesiology Progress Note ---
Date of Service October 20, 2021 Anesthesia Post Procedure Vital Signs Vital Signs: Temp Pulse Pulse Pulse Resp BP BP 10/20/21 16:05 86 13 98/65 L 10/20/21 15:55 36.7 C 96 H 13 100/49 L 10/20/21 15:45 84 12 108/69 10/20/21 15:35 83 12 108/69 10/20/21 15:25 69 12 117/82 10/20/21 15:15 108 H 16 126/76 10/20/21 15:07 36.1 C L 97 H 22 131/78 10/20/21 12:42 36.7 C 67 18 10/20/21 07:33 36.6 C 65 16 10/19/21 21:00 36.8 C 61 20 10/19/21 20:21 68 18 107/71 10/19/21 17:12 36.8 C 88 18 141/86 H BP Pulse Ox 10/20/21 16:05 95 10/20/21 15:55 99 10/20/21 15:45 100 10/20/21 15:35 100 10/20/21 15:25 100 10/20/21 15:15 100 10/20/21 15:07 100 10/20/21 12:42 115/90 99 10/20/21 07:33 106/71 93 10/19/21 21:00 120/74 99 10/19/21 20:21 98 10/19/21 17:12 98 Pain Intensity Left Back: Pain Intensity: 8 Left Leg: Pain Intensity: 8 Back: Pain Intensity: 7 Transfer of Care Handoff Completed per policy Notes Mental Status: alert / awake / arousable Patient Amnestic to Procedure: Yes Nausea / Vomiting: adequately controlled Pain: adequately controlled Airway Patency, RR, SpO2: stable & adequate BP & HR: stable & adequate Hydration State: stable & adequate Anesthetic Complications: no major complications apparent
[2021-10-20] MEDS ORDERED: LORazepam 2 MG/1 ML VIAL IV PRN (16:29)
[2021-10-20] MEDS ORDERED: ACETAMINOPHEN 1,000 MG/100 ML VIAL IV PRN (16:29)
[2021-10-20] MEDS ORDERED: DO NOT ADMINISTER FLU VACCINE PRN (16:29)
[2021-10-20] MEDS ORDERED: FAMOTIDINE 20 MG TAB PO PRN (16:29)
[2021-10-20] MEDS ORDERED: LACTATED RINGER'S 1,000 ML IV SCH (16:29)
[2021-10-20] MEDS ORDERED: SOD PHOSPHATE/SOD BIPHOSPHATE ENEMA 132 ML BTL PR PRN (16:29)
[2021-10-20] MEDS ORDERED: LORazepam 0.5 MG TAB PO PRN (16:29)
[2021-10-20] MEDS ORDERED: NALOXONE HCL 0.4 MG/1 ML VIAL/CARP IV PRN (16:29)
[2021-10-20] MEDS ORDERED: ACETAMINOPHEN 500 MG TAB PO PRN (16:29)
[2021-10-20] MEDS ORDERED: METOCLOPRAMIDE HCL INJ 5 MG/ML 2 ML VIAL IV PRN (16:29)
[2021-10-20] MEDS ORDERED: bisacodyL 10 MG SUPP PR PRN (16:29)
[2021-10-20] MEDS ORDERED: MAGNESIUM HYDROXIDE SUSP 30 ML UDC PO PRN (16:29)
[2021-10-20] MEDS ORDERED: HYDROmorphone INJ 0.5 MG/0.5 ML SYR IV PRN (16:29)
[2021-10-20] MEDS ORDERED: traMADol HCL 50 MG TABLET PO PRN (16:29)
[2021-10-20] MEDS ORDERED: ONDANSETRON 4 MG OD TAB PO PRN (16:29)
[2021-10-20] MEDS ORDERED: ALUMINUM/MAGNESIUM SUSP 30 ML UDC PO PRN (16:29)
[2021-10-20] MEDS ORDERED: DO NOT ADMINISTER PNEUMOCOCCAL VACCINE PRN (16:29)
[2021-10-20] MEDS ORDERED: diphenhydrAMINE Capsule 25 MG CAP PO PRN (16:29)
[2021-10-20] MEDS ORDERED: hydrOXYzine HCl 25 MG TAB PO PRN (16:29)
[2021-10-20] MEDS: CHECK SCOPOLAMINE PATCH PLACEMENT SCH ×2 (17:18→23:44)
[2021-10-20] MEDS: HYDROmorphone INJ 1 MG/ML SYRINGE IV PRN ×2 (18:32→21:24)
[2021-10-20] MEDS: DOCUSATE SODIUM/SENNA 50/8.6MG TAB PO SCH (21:21)
[2021-10-20] MEDS: ceFAZolin 1000MG 1,000 MG/7.5 ML SYR IV SCH (21:21)
[2021-10-21] MEDS: HYDROmorphone INJ 1 MG/ML SYRINGE IV PRN ×2 (03:28→08:22)
[2021-10-21] MEDS: ceFAZolin 1000MG 1,000 MG/7.5 ML SYR IV SCH (04:12)
[2021-10-21] MEDS: POLYETHYLENE (MIRALAX) 17 GM PACK PO SCH ×3 (04:14→18:39)
[2021-10-21] MEDS: oxyCODONE HCL IR 5 MG TAB (IMMEDIATE RELEASE) PO PRN ×4 (04:40→19:27)
[2021-10-21] MEDS: CHECK SCOPOLAMINE PATCH PLACEMENT SCH ×2 (05:39→16:18)
[2021-10-21] MEDS: dexAMETHasone 6 MG in SYRINGE 0 ML IV SCH (08:25)
--- NOTE | 2021-10-21 10:36 | Orthopedic Progress Note ---
Date of Service October 21, 2021 Assessment & Plan (1) Recurrent herniation of lumbar disc: Plan: At this time but initiating a course of physical therapy this morning. We will maintain the MORIAH drain. Possible discharge home tomorrow. Admission and Anticipated Discharge Date Admission Date: October 19, 2021 Subjective Patient struggling mostly with back pain. Her leg pain is markedly improved. Physical Exam Physical Exam: On exam she is able to stand up for me. She is able to weight- bear on the left lower extremity without radicular complaints. She is demonstrating reasonable strength testing. Results & Data ([facility]) Vital Signs (Past 12 Hours) Vital Signs Temp Pulse Pulse Resp BP Pulse Ox 10/21/21 07:59 37.2 C 72 18 110/70 96 10/21/21 06:10 37 C 83 16 95/57 L 94 10/21/21 02:52 37.0 C 93 H 18 100/64 95 10/20/21 22:40 37.0 C 102 H 18 97/61 L 97
[2021-10-21] MEDS: DOCUSATE SODIUM/SENNA 50/8.6MG TAB PO SCH (19:26)
[2021-10-22] MEDS: CHECK SCOPOLAMINE PATCH PLACEMENT SCH ×2 (00:20→08:12)
[2021-10-22] MEDS: POLYETHYLENE (MIRALAX) 17 GM PACK PO SCH ×3 (00:20→12:04)
[2021-10-22] MEDS: oxyCODONE HCL IR 5 MG TAB (IMMEDIATE RELEASE) PO PRN ×3 (03:21→12:06)
[2021-10-22] MEDS: dexAMETHasone 6 MG in SYRINGE 0 ML IV SCH (08:09)
--- NOTE | 2021-10-22 09:17 | Discharge Summary ---
Date of Service October 22, 2021 Principal Diagnosis Recurrent lumbar discrimination Discharge Data Allergies Allergy/AdvReac Type Severity Reaction Status Date / Time No Known Allergies Allergy Verified 10/15/21 07:17 Procedures Performed Operation Date: 10/20/21 09:20 Actual Procedures p L3-L4 Revision Decompression with Coflex(Not Applicable) - Evangelist Hernandez DO Ordered Studies 10/20/21 FL spine 1V any level Routine 10/20/21 02:46 MR lumbar spine wo con Urgent Hospital Course (1) Recurrent herniation of lumbar disc: Patient was admitted with severe left leg pain and inability to ambulate. MRI was performed urgently and demonstrated recurrent disc herniation at L3-L4. Subsequently in light of her presentation and decline we underwent emergent decompression revision discectomy. She tolerated so was taken to the orthopedic for postoperative. Postop day 1 I did maintain the drain initiated physical therapy and postoperative to pain was well controlled MORIAH drain decreased appropriately. Subsequent discharge home. Discharge orders instructions from the chart for further review. Total Time Total Time Spent Total Time Spent (In Minutes): 20 minutes Discharge Plan Discharge Items Patient Disposition: Home - Self-Care Reason For Visit: RECURRENT DISK HERNIATION Discharge Diagnosis: Recurrent lumbar disc herniation Activity: As commented below Non-emergency contact: Primary Care Provider Call non-emergency contact if: you have any medication questions Follow-up/Referrals: Syed Abdi MD [Primary Care Provider] - Diet: Regular Addtl Attending Provider Instructions: ACTIVITY RECOMMENDATIONS: SELF CARE INSTRUCTIONS AFTER A LAMINECTOMY 1. No prolonged sitting (less than 30 minutes for the first 3 weeks after surgery). 2. No bending, lifting more than 5 pounds, or twisting (roll like a log when turning in bed). 3. You may shower 3 days after surgery if no drainage from wound. Thoroughly dry wound. Do not soak in the tub. 4. Please walk as much as you can for exercise. Gradually increase the distance that you walk as your endurance increases. 5. You may drive in 7-10 days if you are comfortable and no longer requiring pain medications. SPECIAL CARE INSTRUCTIONS: VERY IMPORTANT TO READ AND REVIEW A. Your surgical incision has been closed with a cosmetic suture under the skin that will dissolve in about 6 weeks. In 14 days, you can use a pair of clean scissors and cut the suture that is left outside of the skin at the ends of your incision. B. Complications are uncommon, but please contact us if you have any signs or symptoms of: 1. wound infection (fever higher than 102.5 degrees F, redness, separation of wound, drainage, or increasing pain from the incision) 2. blood clots in legs (pain, swelling, redness and warmth in legs) 3. urinary tract infection (fever higher than 102.5 degrees, burning upon urination or increased frequency of urination) 4. nerve problems (inability to walk on your toes or heels, numbness, loss of bowel or bladder control) 5. any other symptoms that concern you. C. Please call the office at if you have any concerns or questions about your operation or recovery. MANAGING PAIN AFTER SPINAL SURGERY 1. Narcotic medication is intended for short-term use and will be provided for surgical pain. Surgical pain usually lasts for a period of 4-6 weeks. Narcotic medication includes Percocet, Vicodin, Darvocet, Tylenol #3 or Lortab. 2. Longer-term pain is more appropriately treated with non-narcotic medication such as Tylenol ES. 3. Muscle spasm is not appropriately treated with narcotics. Muscle relaxers such as Soma, Flexeril or Skelaxin can be used along with Tylenol ES. 4. Remember that we all live with some "aches and pains". This is not unusual or uncommon after an injury or as we get older. 5. We will provide appropriate medication within the normal guidelines of their prescribed use. We will also be very cautious and aware of potential abuse and extended duration of patients' medication needs. 6. Please allow 2-3 days to process refills. Prescriptions will not be mailed but must be picked up at the office. FOLLOW UP VISIT: Keep your scheduled follow-up appointment. Any questions, please call the office at . Pending Studies at Discharge: No Stand-Alone Forms: My [employer], Smoking Cessation Medications and DC Order Prescriptions: New oxycodone 5 mg tablet 5 mg PO Q6H PRN (Reason: pain, severe) Qty: 30 RF: 0 Continued oxycodone-acetaminophen 5-325 mg tablet 1 tab PO Q4H PRN (Reason: Pain) RF: 0 tramadol 50 mg tablet 50 mg PO Q6H PRN (Reason: pain, moderate) Qty: 30 RF: 0 oxycodone 5 mg tablet 5 mg PO Q6H PRN (Reason: pain, severe) Qty: 20 RF: 0 Discharge Orders: Discharge Order (Routine); Ordered 10/22/21 Ordered By: Evangelist Hernandez Admission Data Admit Date/Time: 10/19/21 19:33 Attending Provider: Evangelist Hernandez Admit Provider: Evangelist Hernandez Primary Care Provider: Syed Abdi
== END 2021-10-22 14:48 | disposition home or self-care (01) | DRG 518 ==
LOC: ED 17:09 → 3W 19:33
DX: M51.16 Intervertebral disc disorders with radiculopathy, lumbar region; F17.290 Nicotine dependence, other tobacco product, uncomplicated